=== PATIENT | female | born 1970 | race Caucasian/White ===

== ENCOUNTER 2020-06-01 13:02 | Inpatient (IN) ==
[2020-06-01] MEDS ORDERED: PHARMACY CONSULT - VANCOMYCIN XX SCH (14:00)
[2020-06-01] MEDS ORDERED: NS 100 ML IV + SPIKE MINIBAG* 100 ML IV ONE (15:58)
[2020-06-01] MEDS ORDERED: ZOSYN VIAL 3.375 GRAMS IV ONE (15:58)
[2020-06-01 16:12] LABS: BASOPHILS # (AUTO) 0.1 X10^3/uL (0.0-0.1); BASOPHILS % (AUTO) 0.9 % (0.2-1.0); EOSINOPHILS # (AUTO) 0.2 x10^3/uL (0.0-0.2); EOSINOPHILS % (AUTO) 1.8 % (0.9-2.9); HEMOGLOBIN 11.3 g/dL (12.0-16.0); LYMPHOCYTES # (AUTO) 3.4 X10^3/uL (1.3-2.9); LYMPHOCYTES % (AUTO) 27.4 % (21.0-51.0); MEAN CORPUSCULAR HEMOGLOBIN 27.2 pg (27.0-34.0); MEAN CORPUSCULAR HGB CONC 33.3 g/dL (33.0-35.0); MEAN CORPUSCULAR VOLUME 81.6 fL (80.0-100.0); MEAN PLATELET VOLUME 6.8 fL (7.4-11.0); MONOCYTES # (AUTO) 0.7 x10^3/uL (0.3-0.8); MONOCYTES % (AUTO) 5.6 % (0.0-13.0); NEUTROPHILS % (AUTO) 64.3 % (42.0-75.0); PLATELET COUNT 461 X10^3/uL (150.0-450.0); RED BLOOD COUNT 4.17 X10^6/uL (3.5-5.4); RED CELL DISTRIBUTION WIDTH 14.8 % (11.6-16.5); WHITE BLOOD COUNT 12.5 X10^3/uL (3.6-10.0)
[2020-06-01] MEDS: ZOSYN VIAL 3.375 GRAMS 3.375 G in NS 100 ML IV + SPIKE MINIBAG* 100 ML IV SCH ×3 (16:42→23:00)
[2020-06-01] MEDS ORDERED: ZANAFLEX PO PRN (16:45)
[2020-06-01] MEDS: ZESTORETIC 20/25 MG PO SCH (16:51)
[2020-06-01 17:02] LABS: ALANINE AMINOTRANSFERASE 18 Units/L (12-78); ALBUMIN 3.5 g/dL (3.4-5.0); ALKALINE PHOSPHATASE 162 Units/L (46-116); ASPARTATE AMINO TRANSFERASE 14 Units/L (15-37); BLOOD UREA NITROGEN 15 mg/dL (7-18); CALCIUM 9.4 mg/dL (8.5-10.1); CARBON DIOXIDE 28.3 mmol/L (21-32); CHLORIDE 99 mmol/L (98-107); CREATININE 0.91 mg/dL (0.55-1.02); SODIUM 135 mmol/L (136-145); TOTAL PROTEIN 8.8 g/dL (6.4-8.2); eGFR NON BLACK RACES > 60 (>60)
[2020-06-01] MEDS: PAXIL PO SCH (18:04)
[2020-06-01] MEDS ORDERED: VANCOMYCIN IV *PREMIX 1 G/200 ML BAG 1 G/200 ML PIGGYBACK IV ONE (18:30)
[2020-06-01] MEDS ORDERED: VANCOMYCIN HCL 1 G in D5W 250 ML IV 250 ML IV SCH (20:00)
[2020-06-01] MEDS: RESTORIL CAP 30 MG PO PRN (21:00)
[2020-06-01] MEDS: PERCOCET TAB 5/325 MG PO PRN (21:00)
[2020-06-01] MEDS ORDERED: NS 250 ML IV 500 ML IV ONE (21:46)
[2020-06-02 06:21] LABS: BASOPHILS # (AUTO) 0.1 X10^3/uL (0.0-0.1); BASOPHILS % (AUTO) 0.9 % (0.2-1.0); EOSINOPHILS # (AUTO) 0.3 x10^3/uL (0.0-0.2); HEMATOCRIT 32.7 % (36.0-47.0); HEMOGLOBIN 10.9 g/dL (12.0-16.0); LYMPHOCYTES % (AUTO) 33.3 % (21.0-51.0); MEAN CORPUSCULAR HEMOGLOBIN 27.3 pg (27.0-34.0); MEAN CORPUSCULAR HGB CONC 33.3 g/dL (33.0-35.0); MEAN PLATELET VOLUME 6.8 fL (7.4-11.0); MONOCYTES # (AUTO) 0.6 x10^3/uL (0.3-0.8); MONOCYTES % (AUTO) 6.7 % (0.0-13.0); NEUTROPHILS % (AUTO) 56.1 % (42.0-75.0); PLATELET COUNT 421 X10^3/uL (150.0-450.0); RED BLOOD COUNT 3.98 X10^6/uL (3.5-5.4); RED CELL DISTRIBUTION WIDTH 14.9 % (11.6-16.5); WHITE BLOOD COUNT 8.9 X10^3/uL (3.6-10.0)
[2020-06-02 06:32] LABS: ALANINE AMINOTRANSFERASE 17 Units/L (12-78); ALBUMIN 2.8 g/dL (3.4-5.0); ALKALINE PHOSPHATASE 139 Units/L (46-116); ASPARTATE AMINO TRANSFERASE 17 Units/L (15-37); BLOOD UREA NITROGEN 12 mg/dL (7-18); CALCIUM 9.1 mg/dL (8.5-10.1); CARBON DIOXIDE 29.5 mmol/L (21-32); CHLORIDE 103 mmol/L (98-107); COR CA(FOR HYPOALB) 10.1 mg/dL (8.5-10.1); COR NA(FOR HYPERGLY) 140 mmol/L (136-145); CREATININE 0.84 mg/dL (0.55-1.02); SODIUM 140 mmol/L (136-145); TOTAL PROTEIN 7.6 g/dL (6.4-8.2); eGFR NON BLACK RACES > 60 (>60)
[2020-06-02] MEDS: ZOSYN VIAL 3.375 GRAMS 3.375 G in NS 100 ML IV + SPIKE MINIBAG* 100 ML IV SCH ×3 (06:39→21:17)
--- NOTE | 2020-06-02 07:48 | DR.CONSULT ---
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 Allergies Allergies Allergy/AdvReac Type Severity Reaction Status Date / Time clonidine Allergy Verified 06/01/20 18:08 hydrocodone Allergy Verified 06/01/20 18:08 Ewgxxxw-Ljo-Zvu Reductase Allergy Verified 06/01/20 18:08 Inhibitor dextrose 5 % in water AdvReac Verified 06/01/20 18:45 [From Zyvox] linezolid [From Zyvox] AdvReac Verified 06/01/20 18:45 History of Present Illness History of Present Illness: has had wound of left foot for 1.5 months. has undergone many different abx and local wound care, she will need surgical intervention Past Medical History Past Medical History: Diabetes Past Surgical History Surgical History: Other Family History Family Medical History: Diabetes Mellitus, Cancer and Coronary Artery Disease Social History Does patient currently use any type of tobacco product: No Have you used tobacco products in the last 12 months: No Type of Tobacco Use: None How many years tobacco product used: 20 Does any household member use tobacco: No Alcohol Use: Heavy Drug Use: None Medications Home Medications: clonidine Allergy (Verified 06/01/20 18:08) hydrocodone Allergy (Verified 06/01/20 18:08) Zcewkzk-Cuo-Qlu Reductase Inhibitor Allergy (Verified 06/01/20 18:08) dextrose 5 % in water [From Zyvox] Adverse Reaction (Verified 06/01/20 18:45) linezolid [From Zyvox] Adverse Reaction (Verified 06/01/20 18:45) CONTINUE taking the following medications insulin NPH and regular human [Humulin 70/30 U-100 Insulin] See Rx Instructions .ROUTE .COMPLEX 06/01/20 [History] lansoprazole 15 mg PO DAILY 06/01/20 [History] linezolid 600 mg PO BID 06/01/20 [History] lisinopril-hydrochlorothiazide 1 tab PO DAILY 06/01/20 [History] oxycodone-acetaminophen 1 tab PO TID 06/01/20 [History] paroxetine HCl 40 mg PO DAILY 06/01/20 [History] semaglutide [Ozempic] See Rx Instructions .ROUTE .COMPLEX 06/01/20 [History] temazepam 30 mg PO HS 06/01/20 [History] tizanidine 8 mg PO Q8H PRN 06/01/20 [History] Review of Systems Constitutional: Fever, Chills and Sweats Physical Exam Vital Signs: Temperature 98 F Pulse Rate [Left Brachial] 80 Respiratory Rate 20 Blood Pressure [Left Arm] 106/58 O2 Sat by Pulse Oximetry 98 left LE with wound that is 3.8cm in diameter and is 2.1xcm deep and probe to bone. serous fluid. no palpable abscess. patient with gross charcot deformity of the foot with rockerbottom. she has grossly unstable midfoot. hindfoot equinus. right LE with forefoot wound. previous hallux amp. two wounds one under 3rd met head is 1.0cm and is 3mm deep. left with 0.5cm wound and without depth. she still has pain under the forefoot with direct palpation. Skin: Wound (plantar left foot and plantar right foot see above) Musculoskeletal: Foot (charcot of the left foot. ) Plan Plan: will obtain culture this am. has not tolerated zyvox as outpatient, vanco and zosyn here. will plan for I&D and washout of the left foot and likely right foot tomorrow as well. will plan antibiotic bead placement on the left with vanco and zosyn. she will need IVs for one week and then will plan more definitive reconstruction with external fixator next Saturday. NPO after midnight. dry dressings with 4x4 and kerlex to be applied prn to the feet.
[2020-06-02] MEDS ORDERED: ZANAFLEX PO PRN (08:21)
[2020-06-02] MEDS ORDERED: PATIENT'S HOME MEDICATION (Oxycodone-Acetaminophen 1 TAB) PO SCH (08:30)
[2020-06-02] MEDS: VANCOMYCIN HCL 750 MG in NS 250 ML IV 250 ML IV SCH ×2 (08:50→21:15)
[2020-06-02] MEDS: PREVACID PO SCH (08:50)
[2020-06-02] MEDS: PAXIL PO SCH (08:50)
[2020-06-02] MEDS: PERCOCET TAB 5/325 MG PO PRN ×3 (08:51→21:21)
[2020-06-02] MEDS: ZESTORETIC 20/25 MG PO SCH (08:52)
[2020-06-02] MEDS ORDERED: ZESTORETIC 20/25 MG PO SCH (09:00)
[2020-06-02] MEDS ORDERED: LANSOPRAZOLE 15 MG PO SCH (09:00)
[2020-06-02] MEDS ORDERED: PAXIL PO SCH (09:00)
[2020-06-02 13:39] VITALS: BMI 25.9
[2020-06-02] MEDS ORDERED: POTASSIUM CHL 40 MEQ/NS 0.45% 500 ML IV PRN (14:32)
[2020-06-02] MEDS ORDERED: MICRO K EXTEN CAP 10 MEQ PO PRN (14:32)
[2020-06-02] MEDS ORDERED: POTASSIUM CHL 60 MEQ/NS 0.45% 500 ML IV PRN (14:32)
[2020-06-02] MEDS ORDERED: POTASSIUM CHLORIDE LIQ 20 MEQ UDC PO PRN (14:32)
[2020-06-02] MEDS ORDERED: KLOR-CON PO PRN (14:32)
[2020-06-02] MEDS ORDERED: K-DUR TAB 20 MEQ PO PRN (14:32)
[2020-06-02] MEDS ORDERED: K-RIDER 10 MEQ/NS 100 ML 10 MEQ/100 ML BAG IV PRN (14:32)
[2020-06-02] MEDS ORDERED: MILK OF MAGNESIA ONE (14:58)
[2020-06-02] MEDS: MILK OF MAGNESIA PO SCH (15:22)
[2020-06-02] MEDS ORDERED: RESTORIL CAP 30 MG PO SCH (21:00)
[2020-06-02] MEDS: COLACE CAP 100 MG PO SCH (21:20)
[2020-06-02] MEDS: RESTORIL CAP 30 MG PO PRN (21:21)
[2020-06-03] MEDS: ZOSYN VIAL 3.375 GRAMS 3.375 G in NS 100 ML IV + SPIKE MINIBAG* 100 ML IV SCH ×3 (05:16→22:34)
[2020-06-03 06:46] LABS: BASOPHILS # (AUTO) 0.1 X10^3/uL (0.0-0.1); BASOPHILS % (AUTO) 0.8 % (0.2-1.0); EOSINOPHILS # (AUTO) 0.3 x10^3/uL (0.0-0.2); EOSINOPHILS % (AUTO) 3.9 % (0.9-2.9); HEMATOCRIT 31.4 % (36.0-47.0); HEMOGLOBIN 10.5 g/dL (12.0-16.0); LYMPHOCYTES % (AUTO) 38.2 % (21.0-51.0); MEAN CORPUSCULAR HEMOGLOBIN 27.2 pg (27.0-34.0); MEAN CORPUSCULAR HGB CONC 33.5 g/dL (33.0-35.0); MEAN CORPUSCULAR VOLUME 81.3 fL (80.0-100.0); MEAN PLATELET VOLUME 6.4 fL (7.4-11.0); MONOCYTES # (AUTO) 0.5 x10^3/uL (0.3-0.8); MONOCYTES % (AUTO) 6.7 % (0.0-13.0); NEUTROPHILS % (AUTO) 50.4 % (42.0-75.0); PLATELET COUNT 380 X10^3/uL (150.0-450.0); RED BLOOD COUNT 3.86 X10^6/uL (3.5-5.4); RED CELL DISTRIBUTION WIDTH 14.8 % (11.6-16.5); WHITE BLOOD COUNT 7.9 X10^3/uL (3.6-10.0)
[2020-06-03 07:07] LABS: ALANINE AMINOTRANSFERASE 18 Units/L (12-78); ALBUMIN 2.7 g/dL (3.4-5.0); ALKALINE PHOSPHATASE 125 Units/L (46-116); ASPARTATE AMINO TRANSFERASE 13 Units/L (15-37); BLOOD UREA NITROGEN 12 mg/dL (7-18); CARBON DIOXIDE 29.6 mmol/L (21-32); CHLORIDE 105 mmol/L (98-107); COR NA(FOR HYPERGLY) 142 mmol/L (136-145); SODIUM 141 mmol/L (136-145); TOTAL PROTEIN 7.2 g/dL (6.4-8.2); eGFR NON BLACK RACES > 60 (>60)
[2020-06-03] MEDS ORDERED: VANCOMYCIN HCL ONE (07:28)
[2020-06-03] MEDS ORDERED: TOBRAMYCIN SULFATE ONE ×2 (07:28→07:35)
[2020-06-03] MEDS ORDERED: MARCAINE 0.25% INJ ONE (07:28)
--- NOTE | 2020-06-03 07:29 | RAD ---
HISTORYPRE OP DIABETIC ULCERSTUDYCHEST, 1 VIEWCOMPARISONNoneTECHNIQUEAP view of the chestFINDINGSThe cardiac and mediastinal contours are within normal limits. The lungs are clear without focal consolidation or segmental collapse. No pleural effusion or pneumothorax.IMPRESSIONNo acute pulmonary process.Electronically signed by: oJse Gooden (Jun 03, 2020 07:29:02)
[2020-06-03] MEDS ORDERED: FENTANYL INJ 100 mcg ONE (08:12)
[2020-06-03] MEDS ORDERED: PHARMACY COMMENT IV SCH (08:30)
[2020-06-03] MEDS ORDERED: NS 1000 ML 1,000 ML ONE (08:40)
[2020-06-03 08:59] LABS: CREATININE 0.9 mg/dL (0.55-1.02); VANCOMYCIN,TROUGH 7.3 ug/mL (15-20)
[2020-06-03] MEDS ORDERED: SEMAGLUTIDE 1 MG SC SCH (09:00)
[2020-06-03] MEDS ORDERED: EPHEDRINE SULFATE INJ ONE (09:31)
[2020-06-03] MEDS ORDERED: SUPRANE ONE (09:31)
[2020-06-03] MEDS ORDERED: DIPRIVAN VIAL ONE (09:31)
[2020-06-03] MEDS ORDERED: VERSED ONE (09:31)
[2020-06-03] MEDS ORDERED: NS IRRIGATION* 1,000 ML ONE (10:41)
[2020-06-03] MEDS: ZESTORETIC 20/25 MG PO SCH (11:16)
[2020-06-03] MEDS: PREVACID PO SCH (11:17)
[2020-06-03] MEDS: PAXIL PO SCH (11:17)
[2020-06-03] MEDS: MILK OF MAGNESIA PO SCH (11:35)
[2020-06-03] MEDS: VANCOMYCIN HCL 750 MG in NS 250 ML IV 250 ML IV SCH ×2 (11:35→20:40)
[2020-06-03] MEDS: GLUCOPHAGE XR 24-HR PO SCH ×2 (11:35→22:33)
[2020-06-03] MEDS: PERCOCET TAB 5/325 MG PO PRN ×2 (15:25→21:11)
[2020-06-03] MEDS: RESTORIL CAP 30 MG PO PRN (21:12)
[2020-06-03] MEDS: COLACE CAP 100 MG PO SCH (22:33)
[2020-06-04] MEDS: ZOSYN VIAL 3.375 GRAMS 3.375 G in NS 100 ML IV + SPIKE MINIBAG* 100 ML IV SCH ×3 (06:00→23:00)
--- NOTE | 2020-06-04 08:20 | MD.NOTE ---
Provider Note Note Note: S: patient seen this am. POD #1 from I&D with cultures and bone bx. minimal strikethrough. no acute pain. NAD. O: left foot with minor strikethrough. she has motor but no sensory intact to toes. left wound with beads in wound. right foot dressing left intact. A: POD #1 from I&D with washout and bead placement. P: 1. continue IV abx vanco and zosyn, beads placed yesterday with vanco and tobra. 2. awaiting bone bx results from left foot 3. will plan for reconstruction of the left foot mid week with external fixator application, but awaiting bone bx results. 4. patient continue with minimal WB and bedrest. 5. left dressing changed and beads left in place but ioban taken off and dry dressings applied. will need to change daily.
[2020-06-04] MEDS ORDERED: VANCOMYCIN HCL 750 MG VIAL ONE (09:39)
[2020-06-04] MEDS ORDERED: NS 250 ML IV 250 ML IV ONE (09:41)
[2020-06-04] MEDS: PERCOCET TAB 5/325 MG PO PRN ×2 (10:00→19:25)
[2020-06-04] MEDS: PAXIL PO SCH (10:20)
[2020-06-04] MEDS: PREVACID PO SCH (10:21)
[2020-06-04] MEDS: GLUCOPHAGE XR 24-HR PO SCH ×2 (10:21→21:18)
[2020-06-04] MEDS: VANCOMYCIN HCL 750 MG in NS 250 ML IV 250 ML IV SCH ×2 (10:22→21:14)
[2020-06-04] MEDS: ZESTORETIC 20/25 MG PO SCH (10:23)
[2020-06-04] MEDS: MILK OF MAGNESIA PO SCH (12:14)
[2020-06-04] MEDS: COLACE CAP 100 MG PO SCH (21:18)
[2020-06-04] MEDS: RESTORIL CAP 30 MG PO PRN (21:18)
[2020-06-05] MEDS: ZOSYN VIAL 3.375 GRAMS 3.375 G in NS 100 ML IV + SPIKE MINIBAG* 100 ML IV SCH (05:53)
[2020-06-05 06:53] LABS: BASOPHILS # (AUTO) 0.1 X10^3/uL (0.0-0.1); BASOPHILS % (AUTO) 1.3 % (0.2-1.0); EOSINOPHILS # (AUTO) 0.3 x10^3/uL (0.0-0.2); EOSINOPHILS % (AUTO) 3.8 % (0.9-2.9); HEMATOCRIT 29.2 % (36.0-47.0); LYMPHOCYTES # (AUTO) 2.7 X10^3/uL (1.3-2.9); LYMPHOCYTES % (AUTO) 37.9 % (21.0-51.0); MEAN CORPUSCULAR HEMOGLOBIN 27.9 pg (27.0-34.0); MEAN CORPUSCULAR HGB CONC 34.2 g/dL (33.0-35.0); MEAN CORPUSCULAR VOLUME 81.5 fL (80.0-100.0); MEAN PLATELET VOLUME 6.8 fL (7.4-11.0); MONOCYTES # (AUTO) 0.4 x10^3/uL (0.3-0.8); MONOCYTES % (AUTO) 5.7 % (0.0-13.0); NEUTROPHILS # (AUTO) 3.7 x10^3/uL (2.2-4.8); NEUTROPHILS % (AUTO) 51.3 % (42.0-75.0); PLATELET COUNT 329 X10^3/uL (150.0-450.0); RED BLOOD COUNT 3.58 X10^6/uL (3.5-5.4); RED CELL DISTRIBUTION WIDTH 14.7 % (11.6-16.5); WHITE BLOOD COUNT 7.1 X10^3/uL (3.6-10.0)
[2020-06-05 07:17] LABS: ALANINE AMINOTRANSFERASE 15 Units/L (12-78); ALBUMIN 2.6 g/dL (3.4-5.0); ALKALINE PHOSPHATASE 119 Units/L (46-116); ASPARTATE AMINO TRANSFERASE 14 Units/L (15-37); BLOOD UREA NITROGEN 8 mg/dL (7-18); CALCIUM 9.1 mg/dL (8.5-10.1); CARBON DIOXIDE 28.3 mmol/L (21-32); CHLORIDE 105 mmol/L (98-107); COR CA(FOR HYPOALB) 10.2 mg/dL (8.5-10.1); COR NA(FOR HYPERGLY) 142 mmol/L (136-145); CREATININE 0.71 mg/dL (0.55-1.02); SODIUM 141 mmol/L (136-145); eGFR NON BLACK RACES > 60 (>60)
[2020-06-05] MEDS: PERCOCET TAB 5/325 MG PO PRN ×2 (08:25→19:35)
[2020-06-05] MEDS ORDERED: VANCOMYCIN HCL 750 MG VIAL ONE (08:36)
[2020-06-05] MEDS: VANCOMYCIN HCL 750 MG in NS 250 ML IV 250 ML IV SCH (08:42)
[2020-06-05] MEDS: GLUCOPHAGE XR 24-HR PO SCH ×2 (08:45→22:34)
[2020-06-05] MEDS: ZESTORETIC 20/25 MG PO SCH (08:45)
[2020-06-05] MEDS: PAXIL PO SCH (08:45)
[2020-06-05] MEDS: PREVACID PO SCH (08:50)
[2020-06-05] MEDS: CIPRO IV 400 MG PREMIX* 400 MG/200 ML IV.SOLN. IV SCH ×2 (14:13→21:10)
[2020-06-05] MEDS ORDERED: CIPRO IV 400 MG PREMIX* 400 MG/200 ML IV.SOLN. IV ONE (14:15)
[2020-06-05] MEDS: MILK OF MAGNESIA PO SCH (15:45)
[2020-06-05] MEDS: RESTORIL CAP 30 MG PO PRN (21:10)
[2020-06-05 21:13] LABS: CREATININE 0.93 mg/dL (0.55-1.02); VANCOMYCIN,TROUGH 5.9 ug/mL (15-20)
[2020-06-05] MEDS ORDERED: VANCOMYCIN HCL 1 G in D5W 250 ML IV 250 ML IV SCH (22:00)
[2020-06-05] MEDS: COLACE CAP 100 MG PO SCH (22:34)
[2020-06-06 06:55] LABS: BASOPHILS # (AUTO) 0.1 X10^3/uL (0.0-0.1); BASOPHILS % (AUTO) 0.9 % (0.2-1.0); EOSINOPHILS # (AUTO) 0.3 x10^3/uL (0.0-0.2); EOSINOPHILS % (AUTO) 3.4 % (0.9-2.9); HEMATOCRIT 32.8 % (36.0-47.0); HEMOGLOBIN 10.8 g/dL (12.0-16.0); LYMPHOCYTES # (AUTO) 2.8 X10^3/uL (1.3-2.9); LYMPHOCYTES % (AUTO) 35.4 % (21.0-51.0); MEAN CORPUSCULAR HEMOGLOBIN 26.9 pg (27.0-34.0); MEAN CORPUSCULAR HGB CONC 33.1 g/dL (33.0-35.0); MEAN CORPUSCULAR VOLUME 81.2 fL (80.0-100.0); MEAN PLATELET VOLUME 6.7 fL (7.4-11.0); MONOCYTES # (AUTO) 0.4 x10^3/uL (0.3-0.8); MONOCYTES % (AUTO) 5.6 % (0.0-13.0); NEUTROPHILS # (AUTO) 4.3 x10^3/uL (2.2-4.8); NEUTROPHILS % (AUTO) 54.7 % (42.0-75.0); PLATELET COUNT 360 X10^3/uL (150.0-450.0); RED BLOOD COUNT 4.04 X10^6/uL (3.5-5.4); RED CELL DISTRIBUTION WIDTH 14.7 % (11.6-16.5); WHITE BLOOD COUNT 7.9 X10^3/uL (3.6-10.0)
[2020-06-06 07:21] LABS: ALANINE AMINOTRANSFERASE 19 Units/L (12-78); ALBUMIN 2.8 g/dL (3.4-5.0); ALKALINE PHOSPHATASE 118 Units/L (46-116); ASPARTATE AMINO TRANSFERASE 17 Units/L (15-37); BLOOD UREA NITROGEN 12 mg/dL (7-18); CALCIUM 9.3 mg/dL (8.5-10.1); CARBON DIOXIDE 27.3 mmol/L (21-32); CHLORIDE 103 mmol/L (98-107); COR CA(FOR HYPOALB) 10.3 mg/dL (8.5-10.1); COR NA(FOR HYPERGLY) 141 mmol/L (136-145); MAGNESIUM 1.9 mg/dL (1.7-2.9); SODIUM 140 mmol/L (136-145); TOTAL PROTEIN 7.4 g/dL (6.4-8.2); eGFR NON BLACK RACES > 60 (>60)
[2020-06-06] MEDS: CIPRO IV 400 MG PREMIX* 400 MG/200 ML IV.SOLN. IV SCH ×2 (09:11→21:23)
[2020-06-06] MEDS: PREVACID PO SCH (09:12)
[2020-06-06] MEDS: PAXIL PO SCH (09:12)
[2020-06-06] MEDS: ZESTORETIC 20/25 MG PO SCH (09:13)
[2020-06-06] MEDS: MILK OF MAGNESIA PO SCH (09:13)
[2020-06-06] MEDS: GLUCOPHAGE XR 24-HR PO SCH ×3 (09:18→21:24)
[2020-06-06] MEDS: PERCOCET TAB 5/325 MG PO PRN ×2 (09:28→21:32)
[2020-06-06] MEDS: VANCOMYCIN HCL 1 G in D5W 250 ML IV 250 ML IV SCH ×2 (10:45→22:25)
[2020-06-06] MEDS: COLACE CAP 100 MG PO SCH (21:23)
[2020-06-06] MEDS: RESTORIL CAP 30 MG PO PRN (21:31)
[2020-06-07 06:36] LABS: BASOPHILS # (AUTO) 0.1 X10^3/uL (0.0-0.1); BASOPHILS % (AUTO) 1.1 % (0.2-1.0); EOSINOPHILS # (AUTO) 0.3 x10^3/uL (0.0-0.2); HEMOGLOBIN 11.2 g/dL (12.0-16.0); LYMPHOCYTES # (AUTO) 2.8 X10^3/uL (1.3-2.9); LYMPHOCYTES % (AUTO) 31.4 % (21.0-51.0); MEAN CORPUSCULAR HEMOGLOBIN 26.7 pg (27.0-34.0); MEAN CORPUSCULAR HGB CONC 32.9 g/dL (33.0-35.0); MEAN CORPUSCULAR VOLUME 81.4 fL (80.0-100.0); MEAN PLATELET VOLUME 6.5 fL (7.4-11.0); MONOCYTES # (AUTO) 0.6 x10^3/uL (0.3-0.8); MONOCYTES % (AUTO) 6.6 % (0.0-13.0); NEUTROPHILS # (AUTO) 5.1 x10^3/uL (2.2-4.8); NEUTROPHILS % (AUTO) 57.9 % (42.0-75.0); PLATELET COUNT 391 X10^3/uL (150.0-450.0); RED BLOOD COUNT 4.17 X10^6/uL (3.5-5.4); RED CELL DISTRIBUTION WIDTH 14.6 % (11.6-16.5); WHITE BLOOD COUNT 8.8 X10^3/uL (3.6-10.0)
[2020-06-07 06:53] LABS: ALANINE AMINOTRANSFERASE 23 Units/L (12-78); ALBUMIN 2.9 g/dL (3.4-5.0); ALKALINE PHOSPHATASE 120 Units/L (46-116); ASPARTATE AMINO TRANSFERASE 19 Units/L (15-37); BLOOD UREA NITROGEN 11 mg/dL (7-18); CALCIUM 9.2 mg/dL (8.5-10.1); CARBON DIOXIDE 28.6 mmol/L (21-32); CHLORIDE 102 mmol/L (98-107); COR CA(FOR HYPOALB) 10.1 mg/dL (8.5-10.1); COR NA(FOR HYPERGLY) 140 mmol/L (136-145); CREATININE 0.77 mg/dL (0.55-1.02); SODIUM 139 mmol/L (136-145); TOTAL PROTEIN 7.5 g/dL (6.4-8.2); eGFR NON BLACK RACES > 60 (>60)
[2020-06-07] MEDS ORDERED: PHARMACY COMMENT IV NR (08:30)
[2020-06-07] MEDS: CIPRO IV 400 MG PREMIX* 400 MG/200 ML IV.SOLN. IV SCH ×2 (08:44→20:45)
[2020-06-07] MEDS: PREVACID PO SCH (08:44)
[2020-06-07] MEDS: GLUCOPHAGE XR 24-HR PO SCH ×2 (08:44→21:03)
[2020-06-07] MEDS: PAXIL PO SCH (08:44)
[2020-06-07] MEDS: MILK OF MAGNESIA PO SCH (08:44)
[2020-06-07] MEDS: ZESTORETIC 20/25 MG PO SCH (08:45)
[2020-06-07] MEDS: PERCOCET TAB 5/325 MG PO PRN ×2 (08:57→18:21)
[2020-06-07] MEDS: VANCOMYCIN HCL 1 G in D5W 250 ML IV 250 ML IV SCH ×2 (10:00→21:40)
--- NOTE | 2020-06-07 10:07 | PCM.PROG ---
Progress Note Progress Note for Day of Date of Exam: 06/07/20 Subjective Subjective: Pt is s/p b/l foot debridement w/ w/ implantation of abx beads in the left foot. Pt denies n/v/f/c/sob and reports no events overnight. Pt states that she is currently not experiencing any pain and has been able to rest comfortably. Past Medical Family Social History Allergies: Allergies clonidine Allergy (Verified 06/01/20 18:08) hydrocodone Allergy (Verified 06/01/20 18:08) Byzynqh-Zjv-Tlk Reductase Inhibitor Allergy (Verified 06/01/20 18:08) dextrose 5 % in water [From Zyvox] Adverse Reaction (Verified 06/01/20 18:45) linezolid [From Zyvox] Adverse Reaction (Verified 06/01/20 18:45) Vital Signs and I&O's Vital Signs: Temperature 97.2 F Pulse Rate [Left Brachial] 75 Pulse Rate 83 Respiratory Rate 18 Blood Pressure [Left Arm] 123/73 Blood Pressure 98/55 O2 Sat by Pulse Oximetry 99 Intake and Output: Intake & Output 06/04/20 06/05/20 06/06/20 06/07/20 23:59 23:59 23:59 23:59 Intake Total 3560 / 3560 3925 / 3925 3936 / 3936 110 / 110 Balance 3560 / 3560 3925 / 3925 3936 / 3936 110 / 110 Physical Exam Oriented: Normal, Time, Person and Place Eyes: Normal Skin: Wound (plantar left foot and plantar right foot see above) Musculoskeletal: Foot (charcot of the left foot. ) Speech Pattern: Clear and Appropriate Laboratory and Diagnostics Result Diagrams: 06/07/20 06:00 06/07/20 06:00 Labs: 06/03/20 10:00 Foot - Left Gram Stain - Final 06/03/20 10:00 Foot - Left Wound Culture - Final Acinetobacter Baumanii/Haemoly 06/02/20 07:35 Foot - Left Gram Stain - Final 06/02/20 07:35 Foot - Left Wound Culture - Final Acinetobacter Baumanii/Haemoly Laboratory WBC 8.8 X10^3/uL (3.6-10.0) 06/07/20 06:00 RBC 4.17 X10^6/uL (3.5-5.4) 06/07/20 06:00 Hgb 11.2 g/dL (12.0-16.0) L 06/07/20 06:00 Hct 34.0 % (36.0-47.0) L 06/07/20 06:00 MCV 81.4 fL (80.0-100.0) 06/07/20 06:00 MCH 26.7 pg (27.0-34.0) L 06/07/20 06:00 MCHC 32.9 g/dL (33.0-35.0) L 06/07/20 06:00 RDW 14.6 % (11.6-16.5) 06/07/20 06:00 Plt Count 391 X10^3/uL (150.0-450.0) 06/07/20 06:00 MPV 6.5 fL (7.4-11.0) L 06/07/20 06:00 Neut % (Auto) 57.9 % (42.0-75.0) 06/07/20 06:00 Lymph % (Auto) 31.4 % (21.0-51.0) 06/07/20 06:00 [place] % (Auto) 6.6 % (0.0-13.0) 06/07/20 06:00 Eos % (Auto) 3.0 % (0.9-2.9) H 06/07/20 06:00 Baso % (Auto) 1.1 % (0.2-1.0) H 06/07/20 06:00 Neut # (Auto) 5.1 x10^3/uL (2.2-4.8) H 06/07/20 06:00 Lymph # (Auto) 2.8 X10^3/uL (1.3-2.9) 06/07/20 06:00 [place] # (Auto) 0.6 x10^3/uL (0.3-0.8) 06/07/20 06:00 Eos # (Auto) 0.3 x10^3/uL (0.0-0.2) H 06/07/20 06:00 Baso # (Auto) 0.1 X10^3/uL (0.0-0.1) 06/07/20 06:00 Absolute Nucleated RBC 0.1 /100WBC 06/07/20 06:00 Sodium 139 mmol/L (136-145) 06/07/20 06:00 Corrected Sodium 140 mmol/L (136-145) 06/07/20 06:00 Potassium 3.7 mmol/L (3.5-5.1) 06/07/20 06:00 Chloride 102 mmol/L (98-107) 06/07/20 06:00 Carbon Dioxide 28.6 mmol/L (21-32) 06/07/20 06:00 BUN 11 mg/dL (7-18) 06/07/20 06:00 Creatinine 0.77 mg/dL (0.55-1.02) 06/07/20 06:00 Est GFR (MDRD) Af Amer > 60 (>60) 06/07/20 06:00 Est GFR (MDRD) Non-Af > 60 (>60) 06/07/20 06:00 Glucose 159 mg/dL (65-99) H 06/07/20 06:00 POC Glucose (mg/dL) 131 mg/dL (65-99) H 06/07/20 05:23 Calcium 9.2 mg/dL (8.5-10.1) 06/07/20 06:00 Corrected Calcium 10.1 mg/dL (8.5-10.1) 06/07/20 06:00 Magnesium 1.9 mg/dL (1.7-2.9) 06/06/20 05:33 Total Bilirubin 0.20 mg/dL (0.2-1.0) 06/07/20 06:00 AST 19 Units/L (15-37) 06/07/20 06:00 ALT 23 Units/L (12-78) 06/07/20 06:00 Alkaline Phosphatase 120 Units/L (46-116) H 06/07/20 06:00 Total Protein 7.5 g/dL (6.4-8.2) 06/07/20 06:00 Albumin 2.9 g/dL (3.4-5.0) L 06/07/20 06:00 Globulin 4.6 g/dL (2.5-4.5) H 06/07/20 06:00 Albumin/Globulin Ratio 0.6 Ratio (1.1-2.1) L 06/07/20 06:00 Vancomycin Trough 5.9 ug/mL (15-20) L 06/05/20 20:40 Tissue Pathology To follow 06/03/20 10:00 Plan (1) Osteomyelitis of foot: Status: Acute Plan: Assessment/Plan: - Pt was seen at bedside and, both the dressing and abx beads were removed. The wound measured 3.0cm x 2.5cm x 1.2cm. Wound base is granular w/ no undermining or tunneling. No malodor or purulent drainage. - wound was dressed w/ betadine soaked gauze and cling. - c/w IV abx as per ID recs - NPO @ midnight - Pt will return to OR tomorrow for application of external fixation and will remain in hospital for an additional day for post op pain management.
[2020-06-07] MEDS: COLACE CAP 100 MG PO SCH (21:02)
[2020-06-08 06:40] LABS: BASOPHILS # (AUTO) 0.1 X10^3/uL (0.0-0.1); BASOPHILS % (AUTO) 0.8 % (0.2-1.0); EOSINOPHILS # (AUTO) 0.3 x10^3/uL (0.0-0.2); EOSINOPHILS % (AUTO) 3.2 % (0.9-2.9); HEMATOCRIT 36.1 % (36.0-47.0); HEMOGLOBIN 11.9 g/dL (12.0-16.0); LYMPHOCYTES # (AUTO) 2.8 X10^3/uL (1.3-2.9); LYMPHOCYTES % (AUTO) 28.2 % (21.0-51.0); MEAN CORPUSCULAR HGB CONC 33.1 g/dL (33.0-35.0); MEAN CORPUSCULAR VOLUME 81.4 fL (80.0-100.0); MEAN PLATELET VOLUME 6.6 fL (7.4-11.0); MONOCYTES # (AUTO) 0.7 x10^3/uL (0.3-0.8); MONOCYTES % (AUTO) 6.8 % (0.0-13.0); PLATELET COUNT 451 X10^3/uL (150.0-450.0); RED BLOOD COUNT 4.43 X10^6/uL (3.5-5.4); RED CELL DISTRIBUTION WIDTH 14.7 % (11.6-16.5); WHITE BLOOD COUNT 9.8 X10^3/uL (3.6-10.0)
[2020-06-08 06:51] LABS: ALANINE AMINOTRANSFERASE 24 Units/L (12-78); ALBUMIN 3.3 g/dL (3.4-5.0); ALKALINE PHOSPHATASE 133 Units/L (46-116); ASPARTATE AMINO TRANSFERASE 16 Units/L (15-37); BLOOD UREA NITROGEN 11 mg/dL (7-18); CALCIUM 9.8 mg/dL (8.5-10.1); CARBON DIOXIDE 29.8 mmol/L (21-32); CHLORIDE 101 mmol/L (98-107); COR CA(FOR HYPOALB) 10.4 mg/dL (8.5-10.1); COR NA(FOR HYPERGLY) 141 mmol/L (136-145); SODIUM 140 mmol/L (136-145); TOTAL PROTEIN 8.1 g/dL (6.4-8.2); eGFR NON BLACK RACES > 60 (>60)
[2020-06-08] MEDS: PERCOCET TAB 5/325 MG PO PRN ×3 (07:43→23:28)
[2020-06-08] MEDS: CIPRO IV 400 MG PREMIX* 400 MG/200 ML IV.SOLN. IV SCH ×2 (09:38→21:30)
[2020-06-08] MEDS ORDERED: NS 250 ML IV 250 ML IV ONE (09:41)
[2020-06-08] MEDS: PREVACID PO SCH (10:44)
[2020-06-08] MEDS: GLUCOPHAGE XR 24-HR PO SCH ×2 (10:44→23:22)
[2020-06-08] MEDS: VANCOMYCIN HCL 1 G in D5W 250 ML IV 250 ML IV SCH ×2 (10:46→22:40)
[2020-06-08] MEDS: ZESTORETIC 20/25 MG PO SCH (10:46)
[2020-06-08] MEDS: PAXIL PO SCH (10:47)
[2020-06-08] MEDS: MILK OF MAGNESIA PO SCH (10:47)
[2020-06-08] MEDS ORDERED: NS 1000 ML 1,000 ML ONE (12:21)
[2020-06-08] MEDS ORDERED: MARCAINE 0.25% INJ ONE (12:29)
[2020-06-08] MEDS ORDERED: NS IRRIGATION* 500 ML IR ONE (12:32)
[2020-06-08] MEDS ORDERED: BETADINE SOLN ONE (12:48)
[2020-06-08] MEDS ORDERED: VERSED ONE (13:02)
[2020-06-08] MEDS ORDERED: DIPRIVAN VIAL ONE (13:02)
[2020-06-08] MEDS ORDERED: EPHEDRINE SULFATE INJ ONE (13:02)
[2020-06-08] MEDS ORDERED: FENTANYL INJ 250 mcg ONE (13:02)
[2020-06-08] MEDS ORDERED: ZOFRAN INJ 4 MG VIAL ONE (13:02)
[2020-06-08] MEDS ORDERED: VANCOMYCIN HCL ONE (14:42)
[2020-06-08] MEDS ORDERED: TOBRAMYCIN SULFATE ONE (14:43)
[2020-06-08] MEDS ORDERED: ZOFRAN INJ 4 MG VIAL IVP PRN ×2 (15:23→15:45)
[2020-06-08] MEDS ORDERED: DILAUDID INJ ONE (15:36)
[2020-06-08] MEDS: DILAUDID INJ IVP PRN ×4 (15:37→15:52)
[2020-06-08] MEDS: NS 1000 ML 1,000 ML IV SCH ×2 (15:39→18:45)
[2020-06-08] MEDS ORDERED: PHENERGAN INJ 25 MG IM PRN (15:45)
[2020-06-08] MEDS ORDERED: REGLAN INJ 10 MG VIAL IVP PRN (15:45)
[2020-06-08] MEDS ORDERED: BENADRYL INJ 50 MG VIAL IVP PRN (15:45)
[2020-06-08] MEDS ORDERED: COLACE CAP 100 MG PO SCH (21:00)
[2020-06-09] MEDS: PERCOCET TAB 5/325 MG PO PRN ×3 (05:35→14:53)
[2020-06-09 06:35] LABS: BLOOD UREA NITROGEN 11 mg/dL (7-18); CALCIUM 8.5 mg/dL (8.5-10.1); CARBON DIOXIDE 24.6 mmol/L (21-32); CHLORIDE 105 mmol/L (98-107); COR NA(FOR HYPERGLY) 140 mmol/L (136-145); CREATININE 0.82 mg/dL (0.55-1.02); SODIUM 139 mmol/L (136-145); eGFR NON BLACK RACES > 60 (>60)
[2020-06-09] MEDS ORDERED: LOVENOX INJ 40 MG SYR SC SCH (09:00)
[2020-06-09] MEDS: NS 1000 ML 1,000 ML IV SCH (09:00)
[2020-06-09] MEDS: ZESTORETIC 20/25 MG PO SCH (09:21)
[2020-06-09] MEDS: PREVACID PO SCH (09:21)
[2020-06-09] MEDS: CIPRO IV 400 MG PREMIX* 400 MG/200 ML IV.SOLN. IV SCH (09:22)
[2020-06-09] MEDS: GLUCOPHAGE XR 24-HR PO SCH (09:22)
[2020-06-09] MEDS: PAXIL PO SCH (09:22)
[2020-06-09] MEDS: MILK OF MAGNESIA PO SCH (09:23)
[2020-06-09] MEDS ORDERED: VANCOMYCIN HCL 250 MG, VANCOMYCIN HCL 1 G in D5W 250 ML IV 250 ML IV SCH (11:00)
[2020-06-09 13:23] VITALS: BP 137/63
[2020-06-10] MEDS ORDERED: PHARMACY COMMENT IV NR (20:30)
== END 2020-06-09 15:00 | disposition home health service (06) | DRG 624 ==
LOC: MED/SURG → EDSEX 14:50
PROVIDERS: ADMIT Obstetrics & Gynecology Obstetrics; ATTEND Obstetrics & Gynecology Obstetrics
PROC: APEXFIX (2020-06-08 12:15)
DX: B96.89 Other specified bacterial agents as the cause of diseases classified elsewhere; M24.572 Contracture, left ankle; I10 Essential (primary) hypertension; B96.5 Pseudomonas (aeruginosa) (mallei) (pseudomallei) as the cause of diseases classified elsewhere; E11.621 Type 2 diabetes mellitus with foot ulcer; L97.529 Non-pressure chronic ulcer of other part of left foot with unspecified severity

== ENCOUNTER 2021-05-05 12:51 | Inpatient (IN) ==
[2021-05-05 12:56] VITALS: BMI 23.2
[2021-05-05] MEDS ORDERED: NS 1000 ML 1,000 ML IV ONE (13:57)
--- NOTE | 2021-05-05 14:01 | DR.GENAD ---
HPI Time Seen Time Seen by Provider: 05/05/21 13:46 PCP Primary Care Physician: MARIELA HOWARD Complaint/Symptoms Chief Complaint Doctors Comments: 50 y/o female presents for evaluation. + black, necrotic left 2nd toe x 3 days. Now with similar blackness developing of left 3rd toe, side of left foot. + pain, constant, of left foot, does not radiate. Worse with movement, palpation. Referred to ER from scanning clerk, to see Dr. Doss. 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 Chief Complaint:: PT TO ER TO BE EVALUATED FOR NECROSIS , PT WAS REFFERED BY HEATHER HOWARD TO COME TO THE ER AND KATE HOWARD TO SEE PT ( PT REPORTS THIS STARTED 1.5 WEEKS AGO AND THAT SHE WAS AT [facility] OFFICE AND SHE WAS CALLED TO COME TO THE ER" Self Treatment fo Chief Complaint: NONE COVID-19 Coronavirus risk:travel/contact w/high risk person: No Has patient experienced Coronavirus symptoms: No Nurses notes reviewed Nurses Notes Review: Yes Source History Provided: Patient Mode of Arrival Mode of Arrival: Wheelchair Timing Onset of Chief Complaint: 04/19/21 Came on: Suddenly Duration Duration: Since Onset Severity Severity: Severe PMH PMH Past Medical History: Yes Past Medical History: Diabetes Past Surgical History: No Surgical History: Other Family History History of Family Medical Conditions: Yes Family Medical History: Diabetes Mellitus, Cancer and Coronary Artery Disease Social History Does patient currently use any type of tobacco product: No Have you used tobacco products in the last 12 months: No Type of Tobacco Use: None Does any household member use tobacco: No Alcohol Use: None Do you use any recreational Drugs:: No Lives With: Family Lives Where: Home Travel Risk Coronavirus risk:travel/contact w/high risk person: No Has patient experienced Coronavirus symptoms: No Infectious screening In the last 2 months have you had wt loss of >10#?: NO Have you had fever, night sweats or hemotysis?: No Have you traveled outside the country in the last 6 months?: No Isolation: Droplet ROS Review of Systems Constitutional: No Symptoms Reported Eyes: No Symptoms Reported ENTM: No Symptoms Reported Respiratoy: No Symptoms Reported Cardiovascular: No Symptoms Reported Gastrointestinal/Abdominal: No Symptoms Reported Genitourinary: No Symptoms Reported Neurological: No Symptoms Reported Integumentary: Other (blackness of left foot/toes) Hematologic/Lymphatic: No Symptoms Reported Endocrine: No Symptoms Reported Psychiatric: No Symptoms Reported All Other Systems: Reviewed and Negative PE Vital Signs Vitals: Temperature 96.9 F Pulse Rate 84 Respiratory Rate 22 Blood Pressure [Right Arm] 110/58 Blood Pressure [Left Arm] 137/63 Blood Pressure 110/70 O2 Sat by Pulse Oximetry 95 General Limitations: No Limitations General Appearance: Alert and Anxious Eyes Eye exam: Normal Appearance Neck Neck Exam: Normal Inspection Chest Chest Inspection: Normal Inspection Respiratory Respiratory Exam: Normal Lung Sounds Bilat; negative Accessory Muscle Use and Respiratory Distress Respiratory Exam: Bilateral: Clear to Auscultation Cardiovascular Cardiovascular Exam: Regular Rate, Normal Rhythm and Normal Heart Sounds Abdominal Exam Abdominal Exam: Normal Inspection Extremities Extremities Exam: Other (Left foot - + black, necrotic entire 2nd toe, + scattered blackness of 3rd toe. + oval patch of black dorsal lateral foot. + diffuse tenderness) Neurologic Neurological Exam: Alert and Oriented X3 Psychiatric Psychiatric Exam: Normal Affect and Anxious Skin Skin Exam: Warm and Dry MDM Differential Diagnosis Differential Diagnosis: gangrene, arterial occlusion COURSE Treatment Treatment: Pt sent from scanning clerk office, pt with gangrene of left 2nd toe, developing areas of necrosis of 3rd toe and lateral foot. W/u initiated. Dr. Doss came and evaluated the pt, will admit. [facility]OR Labs Reviewed Result Diagrams: 05/05/21 14:23 05/05/21 14:23 Laboratory: WBC 12.8 X10^3/uL (3.6-10.0) H 05/05/21 14:23 RBC 4.02 X10^6/uL (3.5-5.4) 05/05/21 14:23 Hgb 8.3 g/dL (12.0-16.0) L 05/05/21 14:23 Hct 27.0 % (36.0-47.0) L 05/05/21 14:23 MCV 67.1 fL (80.0-100.0) L 05/05/21 14:23 MCH 20.7 pg (27.0-34.0) L 05/05/21 14:23 MCHC 30.8 g/dL (33.0-35.0) L 05/05/21 14:23 RDW 19.8 % (11.6-16.5) H 05/05/21 14:23 Plt Count 616 X10^3/uL (150.0-450.0) H 05/05/21 14:23 Plt Count Comment Increased (ADEQUATE) A 05/05/21 14:23 MPV 6.9 fL (7.4-11.0) L 05/05/21 14:23 Neut % (Auto) 59.0 % (42.0-75.0) 05/05/21 14:23 Lymph % (Auto) 28.5 % (21.0-51.0) 05/05/21 14:23 [place] % (Auto) 9.2 % (0.0-13.0) 05/05/21 14:23 Eos % (Auto) 2.1 % (0.9-2.9) 05/05/21 14:23 Baso % (Auto) 1.2 % (0.2-1.0) H 05/05/21 14:23 Neut # (Auto) 7.5 x10^3/uL (2.2-4.8) H 05/05/21 14:23 Lymph # (Auto) 3.6 X10^3/uL (1.3-2.9) H 05/05/21 14:23 [place] # (Auto) 1.2 x10^3/uL (0.3-0.8) H 05/05/21 14:23 Eos # (Auto) 0.3 x10^3/uL (0.0-0.2) H 05/05/21 14:23 Baso # (Auto) 0.2 X10^3/uL (0.0-0.1) H 05/05/21 14:23 Absolute Nucleated RBC 0.0 /100WBC 05/05/21 14:23 Plt Morphology Comment Normal (NORMAL) 05/05/21 14:23 RBC Morphology Abnormal (NORMAL) A 05/05/21 14:23 Hypochromasia Slight A 05/05/21 14:23 Anisocytosis 1+ A 05/05/21 14:23 Microcytosis 1+ A 05/05/21 14:23 Ovalocytes Present 05/05/21 14:23 PT 12.8 SECONDS (11.8-14.3) 05/05/21 14:23 INR Target Range - 05/05/21 14:23 INR 1.01 (0.8-1.3) 05/05/21 14:23 APTT 36.1 SECONDS (22.9-36.5) 05/05/21 14:23 PTT Comment - 05/05/21 14:23 Sodium 134 mmol/L (136-145) L 05/05/21 14:23 Corrected Sodium 136 mmol/L (136-145) 05/05/21 14:23 Potassium 3.7 mmol/L (3.5-5.1) 05/05/21 14:23 Chloride 98 mmol/L (98-107) 05/05/21 14:23 Carbon Dioxide 27.1 mmol/L (21-32) 05/05/21 14:23 BUN 10 mg/dL (7-18) 05/05/21 14:23 Creatinine 1.00 mg/dL (0.55-1.02) 05/05/21 14:23 Est GFR (MDRD) Af Amer > 60 (>60) 05/05/21 14:23 Est GFR (MDRD) Non-Af > 60 (>60) 05/05/21 14:23 Glucose 199 mg/dL (65-99) H 05/05/21 14:23 Calcium 9.1 mg/dL (8.5-10.1) 05/05/21 14:23 Corrected Calcium 9.8 mg/dL (8.5-10.1) 05/05/21 14:23 Ferritin 73 ng/mL (8-252) 05/05/21 14:23 Total Bilirubin 0.30 mg/dL (0.2-1.0) 05/05/21 14:23 AST 20 Units/L (15-37) 05/05/21 14:23 ALT 25 Units/L (12-78) 05/05/21 14:23 Alkaline Phosphatase 154 Units/L (46-116) H 05/05/21 14:23 C-Reactive Protein 140.30 mg/L (0-3.0) H 05/05/21 14:23 Total Protein 8.3 g/dL (6.4-8.2) H 05/05/21 14:23 Albumin 3.1 g/dL (3.4-5.0) L 05/05/21 14:23 Globulin 5.2 g/dL (2.5-4.5) H 05/05/21 14:23 Albumin/Globulin Ratio 0.6 Ratio (1.1-2.1) L 05/05/21 14:23 SARS-CoV-2 (PCR) Negative (NEGATIVE) 05/05/21 14:35 Influenza Type A (PCR) Negative (NEGATIVE) 05/05/21 14:35 Influenza Type B (PCR) Negative (NEGATIVE) 05/05/21 14:35 RSV (PCR) Negative (NEGATIVE) 05/05/21 14:35 EKG Rate: 79 [place]: Normal Rhythm: NSR Block: None Hypertrophy: None ST: Normal Opioid Opioid Risk Tool Age (Hiro box if 16-45): No History of Preadolescent Sexual Abuse: No Total: 0 Total Score Risk Category: Low Risk Copyright: Albert HERNANDEZ predicting aberrant behaviors Diagnosis Discharge Problem: Gangrene of left foot
--- NOTE | 2021-05-05 14:32 | RAD ---
HISTORYPRE OP: LETTY, 1 VIEWCOMPARISONFebruary 2020TECHNIQUEChest x-ray single viewFINDINGSRestricted lung volumes are demonstrated. There is been interval development of diffuse bilateral coarsened interstitial airspace opacities within the right and left lung. There is no evidence of pneumothorax or free air in the pleural spaces are clear. The heart size is normal.IMPRESSIONRestricted lung volumes with interval development of diffuse, bilateral coarsened interstitial and subpleural airspace opacities and intervening ground-glass changes. Findings may represent any combination of acute pneumonia related to nonspecific viral or atypical organism infections including COVID-19, chronic interstitial lung disease, or combination of the above.Electronically signed by: LIZZETH MCCULLOUGH (May 05, 2021 14:31:00)
[2021-05-05 14:38] LABS: BASOPHILS # (AUTO) 0.2 X10^3/uL (0.0-0.1); BASOPHILS % (AUTO) 1.2 % (0.2-1.0); EOSINOPHILS # (AUTO) 0.3 x10^3/uL (0.0-0.2); EOSINOPHILS % (AUTO) 2.1 % (0.9-2.9); HEMOGLOBIN 8.3 g/dL (12.0-16.0); LYMPHOCYTES # (AUTO) 3.6 X10^3/uL (1.3-2.9); LYMPHOCYTES % (AUTO) 28.5 % (21.0-51.0); MEAN CORPUSCULAR HEMOGLOBIN 20.7 pg (27.0-34.0); MEAN CORPUSCULAR HGB CONC 30.8 g/dL (33.0-35.0); MEAN CORPUSCULAR VOLUME 67.1 fL (80.0-100.0); MEAN PLATELET VOLUME 6.9 fL (7.4-11.0); MONOCYTES # (AUTO) 1.2 x10^3/uL (0.3-0.8); MONOCYTES % (AUTO) 9.2 % (0.0-13.0); NEUTROPHILS # (AUTO) 7.5 x10^3/uL (2.2-4.8); PLATELET COUNT 616 X10^3/uL (150.0-450.0); RED BLOOD COUNT 4.02 X10^6/uL (3.5-5.4); RED CELL DISTRIBUTION WIDTH 19.8 % (11.6-16.5); WHITE BLOOD COUNT 12.8 X10^3/uL (3.6-10.0)
[2021-05-05] MEDS ORDERED: NS 1000 ML 1,000 ML ONE (14:38)
--- NOTE | 2021-05-05 14:44 | RAD ---
Left foot three viewsIndication: Necrotic toes. Second 4th toe are dark.COMPARISONNo recent priorFINDINGSThere is postsurgical change from talocalcaneal fusion. 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 Post amputation of the great toe phalanges noted.There is gas around the 2nd toe phalanges, seen both on sagittal frontal images, gas beneath the narrow bed. No aggressive cortical destruction or periosteal reaction convincingly demonstrated on limited images.There may be swelling about the 4th toe, but no definite gas seen.IMPRESSION1. Postsurgical changes and degenerative changes as above2. Gas around the 2nd toe distal phalanges, concerning for necrotic tissue, abscess with underlying osteomyelitis not excluded, although there is no paul cortical destruction.3. Swelling of the 4th toe without soft tissue gas convincingly demonstrated. No specific evidence of osteomyelitis here but this is not entirely excluded.4. Postsurgical change from cuboid resection and hindfoot fusion.Electronically signed by: SIXTO GENAO (May 05, 2021 14:42:47)
[2021-05-05 14:51] LABS: ALANINE AMINOTRANSFERASE 25 Units/L (12-78); ALBUMIN 3.1 g/dL (3.4-5.0); ALKALINE PHOSPHATASE 154 Units/L (46-116); ASPARTATE AMINO TRANSFERASE 20 Units/L (15-37); BLOOD UREA NITROGEN 10 mg/dL (7-18); CALCIUM 9.1 mg/dL (8.5-10.1); CARBON DIOXIDE 27.1 mmol/L (21-32); CHLORIDE 98 mmol/L (98-107); COR CA(FOR HYPOALB) 9.8 mg/dL (8.5-10.1); COR NA(FOR HYPERGLY) 136 mmol/L (136-145); SODIUM 134 mmol/L (136-145); TOTAL PROTEIN 8.3 g/dL (6.4-8.2); eGFR NON BLACK RACES > 60 (>60)
[2021-05-05 14:55] LABS: ANISOCYTOSIS 1+; HYPOCHROMASIA SLIGHT; MICROCYTOSIS 1+; PLATELET MORPHOLOGY COMMENT NORMAL (NORMAL)
[2021-05-05 14:56] LABS: OVALOCYTES PRESENT
[2021-05-05] MEDS ORDERED: NS 100 ML IV 100 ML ONE (16:37)
[2021-05-05] MEDS ORDERED: LR 1000 ML IV 1,000 ML IV ONE (17:13)
[2021-05-05] MEDS: LR 1000 ML IV 1,000 ML IV SCH (17:25)
--- NOTE | 2021-05-05 18:10 | CT ---
HISTORYPT TO ER TO BE EVALUATED FOR NECROSIS, PT WAS REFFERED BY DR. ROMERO TO COME TO THE ER AND DR. LOVE TO SEE PTSTUDYCTA AORTA WITH RUNOFFCOMPARISONLeft foot series dated same day.TECHNIQUEMultiple axial images of the abdomen and pelvis were obtained from the mesenteric vasculature to the plantar surface of the feet both prior to and after the administration of IV contrast. 3D reconstructions were performed utilizing radial maximum intensity projection imaging. Dose reduction techniques including Automated Exposure Control (AEC) and adjustment of mA and kV were utilized.FINDINGSModerate to severe fibrosis of the lung bases. Hepatomegaly and hepatic steatosis. The visualized liver is otherwise unremarkable. Remaining solid organs are unremarkable. Small hiatal hernia. No obvious free air, free fluid, or pathologic lymphadenopathy. The visualized large and small bowel is unremarkable. The uterus is unremarkable. No suspicious adnexal lesions. Degenerative changes of the spine. Amputation of the right forefoot. Fusion of the talus and calcaneus of the left foot. Severe midfoot collapse with fragmentation of the midfoot. Amputation of the distal right great toe. Osteomyelitis is not entirely excluded. Soft tissue gas is seen about the distal 2nd left toe. The visualized osseous structures are unremarkable. Nonspecific thrombus is seen within the distal thoracic aorta (series 6, image 1 and series 12, image 47). The visualized celiac axis, renal arteries, SMA, and MARTHA are patent.Infrarenal abdominal aorta: Patent with mild atherosclerotic calcifications. No significant aneurysmal dilatation, focal stenosis, dissection, or extravasation.Common iliac arteries: Patent with mild atherosclerotic calcifications. No significant aneurysmal dilatation, focal stenosis, dissection, or extravasation.External iliac arteries: Patent with mild atherosclerotic calcifications. No significant aneurysmal dilatation, focal stenosis, dissection, or extravasation.Common femoral arteries: Patent with mild atherosclerotic calcifications. No significant aneurysmal dilatation, focal stenosis, dissection, or extravasation.Superficial femoral arteries: Patent without significant aneurysmal dilatation, focal stenosis, dissection, or extravasation.Popliteal arteries: Patent without significant aneurysmal dilatation, focal stenosis, dissection, or extravasation.Tibial vasculature: Are patent to the level of the ankles and then become diminished.IMPRESSIONOne. No significant aneurysmal dilatation, focal stenosis, dissection, or extravasation of the abdominal aorta and its major branching vessels. Diminished flow is seen within the bilateral tibial vasculature at the level of the ankle.Two. Constellation of findings of the left foot concerning for osteomyelitis. Recommend clinical/laboratory correlation.Three. Nonspecific thrombus is seen within the distal thoracic aorta as above.Electronically signed by: KORY ASHLEY (May 05, 2021 18:08:28)
--- NOTE | 2021-05-05 19:36 | DR.H&P ---
H&P History & Physical for Day of: H&P Date: 05/05/21 Chief Complaint Chief Complaint: Gangrenous changes left 2nd and 3rd toes with ischemic changes to left lateral foot. Allergies Allergies Allergy/AdvReac Type Severity Reaction Status Date / Time clonidine Allergy Verified 05/05/21 15:14 hydrocodone Allergy Verified 05/05/21 15:14 Cgbwhhb-Vcu-Hqp Reductase Allergy Verified 05/05/21 15:14 Inhibitor dextrose 5 % in water AdvReac Verified 05/05/21 15:14 [From Zyvox] linezolid [From Zyvox] AdvReac Verified 05/05/21 15:14 History of Present Illness History of Present Illness: 50 year-old female with significant history of diabetes and right transmetatarsal amputation and amputation left great toe who presents now with gangrenous changes of the left 2nd and 3rd toes as well as questionable gangrenous changes of the left lateral foot. Patient denies significant pain and has significant anxiety. 2 weeks ago was positive for COVID. She did not require hospitalization and the only complaints were nausea and vomiting. Tested negative at her primary care physician's office 2 days prior to this and was negative. PCP noted chest x-ray to show "pneumonia" Past Medical History Past Medical History: Diabetes Additional Medical History: Right transmetatarsal amputation, ray amputation left great toe Past Surgical History Surgical History: Other (as above ) Family History Family Medical History: Diabetes Mellitus, Cancer and Coronary Artery Disease Social History Does patient currently use any type of tobacco product: No Have you used tobacco products in the last 12 months: No Type of Tobacco Use: None Does any household member use tobacco: No Alcohol Use: None Medications Home Medications: clonidine Allergy (Verified 05/05/21 15:14) hydrocodone Allergy (Verified 05/05/21 15:14) Apildit-Apx-Dpw Reductase Inhibitor Allergy (Verified 05/05/21 15:14) dextrose 5 % in water [From Zyvox] Adverse Reaction (Verified 05/05/21 15:14) linezolid [From Zyvox] Adverse Reaction (Verified 05/05/21 15:14) Cipro Humulin 70/30 Lansoprozole lisinopril-HCTZ Metformin Percocet Ozempic paroxetine temazepam tizanidine Labs Result Diagrams: 05/05/21 14:23 05/05/21 14:23 Labs: Laboratory WBC 12.8 X10^3/uL (3.6-10.0) H 05/05/21 14:23 RBC 4.02 X10^6/uL (3.5-5.4) 05/05/21 14:23 Hgb 8.3 g/dL (12.0-16.0) L 05/05/21 14:23 Hct 27.0 % (36.0-47.0) L 05/05/21 14:23 MCV 67.1 fL (80.0-100.0) L 05/05/21 14:23 MCH 20.7 pg (27.0-34.0) L 05/05/21 14:23 MCHC 30.8 g/dL (33.0-35.0) L 05/05/21 14:23 RDW 19.8 % (11.6-16.5) H 05/05/21 14:23 Plt Count 616 X10^3/uL (150.0-450.0) H 05/05/21 14:23 Plt Count Comment Increased (ADEQUATE) A 05/05/21 14:23 MPV 6.9 fL (7.4-11.0) L 05/05/21 14:23 Neut % (Auto) 59.0 % (42.0-75.0) 05/05/21 14:23 Lymph % (Auto) 28.5 % (21.0-51.0) 05/05/21 14:23 [place] % (Auto) 9.2 % (0.0-13.0) 05/05/21 14:23 Eos % (Auto) 2.1 % (0.9-2.9) 05/05/21 14:23 Baso % (Auto) 1.2 % (0.2-1.0) H 05/05/21 14:23 Neut # (Auto) 7.5 x10^3/uL (2.2-4.8) H 05/05/21 14:23 Lymph # (Auto) 3.6 X10^3/uL (1.3-2.9) H 05/05/21 14:23 [place] # (Auto) 1.2 x10^3/uL (0.3-0.8) H 05/05/21 14:23 Eos # (Auto) 0.3 x10^3/uL (0.0-0.2) H 05/05/21 14:23 Baso # (Auto) 0.2 X10^3/uL (0.0-0.1) H 05/05/21 14:23 Absolute Nucleated RBC 0.0 /100WBC 05/05/21 14:23 Plt Morphology Comment Normal (NORMAL) 05/05/21 14:23 RBC Morphology Abnormal (NORMAL) A 05/05/21 14:23 Hypochromasia Slight A 05/05/21 14:23 Anisocytosis 1+ A 05/05/21 14:23 Microcytosis 1+ A 05/05/21 14:23 Ovalocytes Present 05/05/21 14:23 PT 12.8 SECONDS (11.8-14.3) 05/05/21 14:23 INR Target Range - 05/05/21 14:23 INR 1.01 (0.8-1.3) 05/05/21 14:23 APTT 36.1 SECONDS (22.9-36.5) 05/05/21 14:23 PTT Comment - 05/05/21 14:23 Sodium 134 mmol/L (136-145) L 05/05/21 14:23 Corrected Sodium 136 mmol/L (136-145) 05/05/21 14:23 Potassium 3.7 mmol/L (3.5-5.1) 05/05/21 14:23 Chloride 98 mmol/L (98-107) 05/05/21 14:23 Carbon Dioxide 27.1 mmol/L (21-32) 05/05/21 14:23 BUN 10 mg/dL (7-18) 05/05/21 14:23 Creatinine 1.00 mg/dL (0.55-1.02) 05/05/21 14:23 Est GFR (MDRD) Af Amer > 60 (>60) 05/05/21 14:23 Est GFR (MDRD) Non-Af > 60 (>60) 05/05/21 14:23 Glucose 199 mg/dL (65-99) H 05/05/21 14:23 POC Glucose (mg/dL) 160 mg/dL (65-99) H 05/05/21 17:09 Calcium 9.1 mg/dL (8.5-10.1) 05/05/21 14:23 Corrected Calcium 9.8 mg/dL (8.5-10.1) 05/05/21 14:23 Ferritin 73 ng/mL (8-252) 05/05/21 14:23 Total Bilirubin 0.30 mg/dL (0.2-1.0) 05/05/21 14:23 AST 20 Units/L (15-37) 05/05/21 14:23 ALT 25 Units/L (12-78) 05/05/21 14:23 Alkaline Phosphatase 154 Units/L (46-116) H 05/05/21 14:23 C-Reactive Protein 140.30 mg/L (0-3.0) H 05/05/21 14:23 Total Protein 8.3 g/dL (6.4-8.2) H 05/05/21 14:23 Albumin 3.1 g/dL (3.4-5.0) L 05/05/21 14:23 Globulin 5.2 g/dL (2.5-4.5) H 05/05/21 14:23 Albumin/Globulin Ratio 0.6 Ratio (1.1-2.1) L 05/05/21 14:23 SARS-CoV-2 (PCR) Negative (NEGATIVE) 05/05/21 14:35 Influenza Type A (PCR) Negative (NEGATIVE) 05/05/21 14:35 Influenza Type B (PCR) Negative (NEGATIVE) 05/05/21 14:35 RSV (PCR) Negative (NEGATIVE) 05/05/21 14:35 Review of Systems Constitutional: Other (does c/omsome pain with movement of gangrenous left toes ) Eyes: No Symptoms Reported ENT: No Symptoms Reported Respiratory: No Symptoms Reported Cardiovascular: No Symptoms Reported Gastrointestinal: Other (Has had nausea and vomiting now resloved ) Genitourinary: No Symptoms Reported Musculoskeletal: No Symptoms Reported Skin: Other (see HPI) Neurological: No Symptoms Reported Physical Exam Vital Signs: Temperature 96.9 F Pulse Rate 84 Respiratory Rate 22 Blood Pressure [Right Arm] 110/58 Blood Pressure [Left Arm] 137/63 Blood Pressure 110/70 O2 Sat by Pulse Oximetry 95 Oriented: Normal, Time, Person and Place Eyes: Normal Ear: Normal Nose: Normal Throat: Normal Respiratory: Clear Throughout ( CXR shows b/l lower lobe scarring vs infiltrate) Cardiovascular: Normal : Normal Auscultation: Bowel Sounds: Normal Palpation: Normal Tenderness: Normal Skin: Other (healed right transmetatarsal amputation, healed left great toe ray amputation,gangrenous changes entire left 2nd toe and end of 3rd tow and 4 cm area dark necrosis of the lateral left foot over mid shaft of the 5th metatarsal bone ) Musculoskeletal: Normal Psychiatric: Anxiety (takes anti-anxiety medicaetions regularly, patient is very anxious and tearful.) Mood Description: Anxious Speech Pattern: Clear and Appropriate Assessment/Plan (1) Gangrene of left foot: Status: Acute Plan: Iv antibiotics, heparin drip, CT aorta with b/l runoff (2) Diabetes mellitus: Status: Chronic Plan: treat with routine q 6 hr blood sugars and sliding scale insulin (3) Hypertension: Status: Chronic Plan: usual home medications (4) Osteomyelitis of foot: Status: Acute Plan: Changes of both feet. Review H&P Reviewed: Yes Patient was examined?: Yes
[2021-05-05] MEDS: DILAUDID INJ IVP PRN (20:59)
[2021-05-05] MEDS: ZOSYN VIAL 3.375 GRAMS 3.375 G in NS 100 ML IV + SPIKE MINIBAG* 100 ML IV SCH (20:59)
[2021-05-05] MEDS: HumuLIN R SC PRN (21:59)
[2021-05-05] MEDS ORDERED: HEPARIN SODIUM IN D5W 25,000 UNITS/500 ML BAG ONE (22:44)
[2021-05-05] MEDS ORDERED: HEPARIN SODIUM IN D5W 25,000 UNITS/500 ML BAG IV PRN (23:16)
[2021-05-05] MEDS ORDERED: HEPARIN SODIUM INJ 5000 UNITS IVP ONE (23:24)
[2021-05-05] MEDS ORDERED: HEPARIN SODIUM INJ 5000 UNITS ONE (23:37)
[2021-05-06] MEDS: DILAUDID INJ IVP PRN ×5 (00:41→22:52)
[2021-05-06] MEDS: ZOSYN VIAL 3.375 GRAMS 3.375 G in NS 100 ML IV + SPIKE MINIBAG* 100 ML IV SCH ×4 (02:58→21:00)
[2021-05-06] MEDS: LR 1000 ML IV 1,000 ML IV SCH (07:53)
[2021-05-06] MEDS ORDERED: PROTONIX TAB 40 MG PO SCH (09:00)
[2021-05-06] MEDS ORDERED: ZESTRIL TAB 20 MG ONE (09:26)
[2021-05-06] MEDS: ZESTORETIC 20/25 MG PO SCH (09:28)
--- NOTE | 2021-05-06 12:13 | NOTE.SOAP ---
Soap Note Note for Day of Date of Exam: 05/06/21 Subjective Data Subjective Data: Admitted with gangrenous changes of the toes left foot. Hx of diabetes and right transmetatarsal amputation. did well last night . No progression of problem. On Heparin drip Objective Data Temperature: 97.6 F Pulse Rate: 114 Respiratory Rate: 20 Blood Pressure: 141/64 O2 Sat by Pulse Oximetry: 94 Objective Data: Left foot unchanged. Complete gangrene of the left second toe , Question of osteomyelitis of left 2nd toe. left 4th toe with ischemic changes and area left lateral foot. CTA shows normal vessels to ankle but the become very small b/l at the ankles. Question of thoracic aortic thrombus. PTT= 40.4 Assessment Assessment: gangrenous left toes, possible embolic, continue on the heparin drip , Will probably need on table arteriogram to asses blood flow to the pedal arch with possible intervention. Plan Plan: see above
[2021-05-06] MEDS: HumuLIN R SC PRN ×2 (12:46→23:02)
[2021-05-06] MEDS ORDERED: HEPARIN SODIUM INJ 5000 UNITS IVP ONE (19:35)
[2021-05-06] MEDS: ATIVAN TAB 1 MG PO PRN (23:00)
[2021-05-06] MEDS: HEPARIN SODIUM IN D5W 25,000 UNITS/500 ML BAG IV PRN ×2 (23:45)
[2021-05-07] MEDS: DILAUDID INJ IVP PRN ×5 (03:25→20:50)
[2021-05-07] MEDS: ZOSYN VIAL 3.375 GRAMS 3.375 G in NS 100 ML IV + SPIKE MINIBAG* 100 ML IV SCH ×4 (03:33→21:00)
[2021-05-07] MEDS ORDERED: HEPARIN SODIUM INJ 5000 UNITS ONE ×2 (04:32→18:09)
[2021-05-07] MEDS ORDERED: HEPARIN SODIUM INJ 5000 UNITS IVP ONE ×2 (04:56→18:18)
[2021-05-07] MEDS: ATIVAN TAB 1 MG PO PRN ×2 (08:31→20:53)
[2021-05-07] MEDS: ZESTORETIC 20/25 MG PO SCH (08:32)
[2021-05-07] MEDS ORDERED: HEPARIN SODIUM IN D5W 25,000 UNITS/500 ML BAG ONE (15:06)
[2021-05-07] MEDS: HEPARIN SODIUM IN D5W 25,000 UNITS/500 ML BAG IV PRN (16:08)
[2021-05-07] MEDS: LR 1000 ML IV 1,000 ML IV SCH ×2 (16:08→20:52)
--- NOTE | 2021-05-07 17:20 | NOTE.SOAP ---
Soap Note Note for Day of Date of Exam: 05/07/21 Subjective Data Subjective Data: Patient with necrosis 2nd and 4th toes on the left foot. This is new. History of right transmetatarsal amputation. Tolerating heparin drip. No further progression of disease. Also with ischemic area to the lateral left foot. Objective Data Temperature: 98.4 F Pulse Rate: 90 Respiratory Rate: 18 Blood Pressure: 118/63 O2 Sat by Pulse Oximetry: 98 Objective Data: As above. No for the progression of ischemia of the left foot. CT angiogram shows major vessels to the left ankle appeared to be intact but pedal arch is markedly small. Assessment Assessment: Will plan on table arteriogram of left lower extremity possible intervention of pedal vessels if possible and amputation of the left 2nd and 4th toes. Plan Plan: see above
[2021-05-08] MEDS: DILAUDID INJ IVP PRN ×5 (03:16→20:15)
[2021-05-08] MEDS: ZOSYN VIAL 3.375 GRAMS 3.375 G in NS 100 ML IV + SPIKE MINIBAG* 100 ML IV SCH ×4 (03:18→20:20)
[2021-05-08] MEDS: HEPARIN SODIUM IN D5W 25,000 UNITS/500 ML BAG IV PRN (07:00)
[2021-05-08] MEDS ORDERED: LR 1000 ML IV 1,000 ML IV ONE (08:39)
[2021-05-08] MEDS ORDERED: ANCEF 1 GRAM IV PREMIX* 2 G/100 ML BAG IV ONE (08:39)
[2021-05-08] MEDS ORDERED: PEPCID 20 MG IV PREMIX* 20 MG/50 ML BAG IV ONE (08:47)
[2021-05-08] MEDS ORDERED: FENTANYL VIAL INJ 100 mcg ONE (09:02)
[2021-05-08] MEDS ORDERED: MARCAINE 0.25% INJ ONE (09:06)
[2021-05-08] MEDS ORDERED: HEPARIN SODIUM INJ 5000 UNITS ONE (09:06)
[2021-05-08] MEDS ORDERED: HEPARIN SODIUM IN D5W 75,000 UNITS/1,500 ML BAG ONE (09:07)
[2021-05-08] MEDS ORDERED: BRIDION ONE (09:17)
[2021-05-08] MEDS ORDERED: ZEMURON 50 MG VIAL ONE (09:18)
[2021-05-08] MEDS ORDERED: DIPRIVAN VIAL ONE (09:31)
[2021-05-08] MEDS ORDERED: NEO-SYNEPHRINE INJ ONE (09:31)
[2021-05-08] MEDS ORDERED: EPHEDRINE SULFATE INJ ONE (09:31)
[2021-05-08] MEDS ORDERED: VERSED ONE (09:31)
[2021-05-08] MEDS ORDERED: SUPRANE ONE (09:31)
[2021-05-08] MEDS ORDERED: XYLOCAINE 2 % (PLAIN) ONE (09:31)
[2021-05-08] MEDS ORDERED: MARCAINE or SENSORCAINE 0.25% WITH EPI IJ ONE (09:36)
[2021-05-08] MEDS ORDERED: HEPARIN SODIUM IN D5W 25,000 UNITS/500 ML BAG ONE (10:33)
[2021-05-08] MEDS ORDERED: NITROGLYCERIN IV PREMIX 50 MG 50 MG/250 ML BAG ONE (10:41)
[2021-05-08] MEDS ORDERED: NS IV NR ×2 (11:30)
[2021-05-08] MEDS ORDERED: ACTIVASE CATHFLO IV NR ×2 (11:30)
[2021-05-08] MEDS ORDERED: DILAUDID INJ ONE (12:49)
[2021-05-08] MEDS ORDERED: BENADRYL INJ 50 MG VIAL IVP PRN (12:55)
[2021-05-08] MEDS ORDERED: PHENERGAN INJ 25 MG IM PRN (12:55)
[2021-05-08] MEDS ORDERED: BARHEMSYS INJ IVP PRN (12:55)
--- NOTE | 2021-05-08 12:55 | OR.IMMED ---
IMMEDIATE POST-OP NOTE Immediate Post-Op Note Pre-Op Diagnosis: Ischemic left foot with gangrene left 2nd and 4th toes , p ossible embolus Post-Op Diagnosis: Embolic obstruction all 3 trifurcation vessels distally left foot Procedure: Description of Procedure: Diagnostic aortogram, diagnostic arteriogram left lower extremity, AngioJet left anterior tibial artery, balloon angioplasty left anterior tibial artery,pulse spray of left posterior tibial artery with TPA, AngioJet left posterior tibial artery, balloon angioplasty left posterior tibial artery, selective catheterization of left anterior tibial artery, selective catheterization left posterior tibial artery. Surgeon/Manager Case: [facility] Findings: left 2nd and 4th toes Specimens Removed: left second and 4th toes Estimated Blood Loss: < 25 cc Drains: NONE Complications: none Progress Notes: return to floor, continue heparin drip, start ASA and Eliquis Final Diagnosis: Embolic occlusion all three distal trifurcation arteries of left foot
[2021-05-08] MEDS: ZESTORETIC 20/25 MG PO SCH (13:04)
[2021-05-08] MEDS: ATIVAN TAB 1 MG PO PRN (17:52)
[2021-05-08] MEDS ORDERED: ELIQUIS PO SCH (21:00)
--- NOTE | 2021-05-08 22:03 | NOTE.SOAP ---
Soap Note Note for Day of Date of Exam: 05/08/21 Subjective Data Subjective Data: S/P l of occluded trifurcation vessels of left calf and balloon angioplasty of the left AT and PT arteries with amputation of left 2nd and 4th toes. Objective Data Temperature: 97.9 F Pulse Rate: 83 Respiratory Rate: 19 Blood Pressure: 148/79 O2 Sat by Pulse Oximetry: 94 Objective Data: Pallor of left 3rd toe. Excellent doppler signal in the left PT artery Assessment Assessment: resolution of trifurcation emboli , amputation of left 2nd and 4th toes Plan Plan: I think we have provided flow to save the left foot . Have discussed with Dr. Mckeon and he agrees that most likely she will require amputation of the remaining toes on the left. Will continue heparin drip and he will discuss amputation of the remaining toes with the patient. On discharge will need to be on Eliquis and Aspirin.
[2021-05-09] MEDS: DILAUDID INJ IVP PRN ×5 (00:35→21:06)
[2021-05-09] MEDS: ZOSYN VIAL 3.375 GRAMS 3.375 G in NS 100 ML IV + SPIKE MINIBAG* 100 ML IV SCH ×4 (03:35→22:30)
[2021-05-09] MEDS ORDERED: HEPARIN SODIUM INJ 5000 UNITS ONE (03:55)
[2021-05-09] MEDS ORDERED: HEPARIN SODIUM IN D5W 25,000 UNITS/500 ML BAG ONE (04:18)
[2021-05-09] MEDS: HEPARIN SODIUM IN D5W 25,000 UNITS/500 ML BAG IV PRN ×2 (04:30→17:45)
[2021-05-09] MEDS ORDERED: HEPARIN SODIUM INJ 5000 UNITS IVP ONE ×2 (04:30→10:19)
[2021-05-09 06:29] LABS: BASOPHILS # (AUTO) 0.2 X10^3/uL (0.0-0.1); BASOPHILS % (AUTO) 1.3 % (0.2-1.0); EOSINOPHILS # (AUTO) 0.4 x10^3/uL (0.0-0.2); EOSINOPHILS % (AUTO) 3.1 % (0.9-2.9); HEMATOCRIT 20.8 % (36.0-47.0); LYMPHOCYTES % (AUTO) 22.2 % (21.0-51.0); MEAN CORPUSCULAR HGB CONC 31.6 g/dL (33.0-35.0); MEAN CORPUSCULAR VOLUME 66.5 fL (80.0-100.0); MEAN PLATELET VOLUME 6.8 fL (7.4-11.0); MONOCYTES # (AUTO) 0.7 x10^3/uL (0.3-0.8); MONOCYTES % (AUTO) 5.1 % (0.0-13.0); NEUTROPHILS # (AUTO) 9.3 x10^3/uL (2.2-4.8); NEUTROPHILS % (AUTO) 68.3 % (42.0-75.0); PLATELET COUNT 457 X10^3/uL (150.0-450.0); RED BLOOD COUNT 3.12 X10^6/uL (3.5-5.4); RED CELL DISTRIBUTION WIDTH 19.2 % (11.6-16.5); WHITE BLOOD COUNT 13.6 X10^3/uL (3.6-10.0)
[2021-05-09 06:41] LABS: BLOOD UREA NITROGEN 2 mg/dL (7-18); CALCIUM 8.8 mg/dL (8.5-10.1); CARBON DIOXIDE 26.2 mmol/L (21-32); CHLORIDE 100 mmol/L (98-107); COR NA(FOR HYPERGLY) 139 mmol/L (136-145); CREATININE 0.68 mg/dL (0.55-1.02); SODIUM 137 mmol/L (136-145); eGFR NON BLACK RACES > 60 (>60)
[2021-05-09 07:55] LABS: HEMOGLOBIN 6.6 g/dL (12.0-16.0)
[2021-05-09 07:59] LABS: PLATELET MORPHOLOGY COMMENT NORMAL (NORMAL)
[2021-05-09 08:00] LABS: ANISOCYTOSIS 1+; HYPOCHROMASIA SLIGHT; MICROCYTOSIS 1+
[2021-05-09 08:01] LABS: OVALOCYTES PRESENT
[2021-05-09] MEDS ORDERED: TYLENOL 325 MG TAB PO ONE ×2 (08:18→12:28)
[2021-05-09] MEDS ORDERED: BENADRYL INJ 50 MG VIAL IVP ONE (08:19)
[2021-05-09] MEDS: ASPIRIN EC 81 MG PO SCH (08:22)
[2021-05-09] MEDS: ATIVAN TAB 1 MG PO PRN ×2 (08:30→18:00)
[2021-05-09] MEDS: ZESTORETIC 20/25 MG PO SCH ×2 (10:08→11:14)
--- NOTE | 2021-05-09 10:40 | NOTE.SOAP ---
Soap Note Note for Day of Date of Exam: 05/09/21 Subjective Data Subjective Data: Mrs. Andrews is a 50 year old female with a PMHx of PAD and DM. She is also s/p left LE vascular procedure with Dr. Doss on 05/08/21. Patient presented to the ED with wounds to the left foot. She is well known to Dr. Mckeon and our office. She has been dealing with LE wounds off and on for some time. Patient states she is doing better today after a few days of antibiotics. The left foot is clean, dry and intact. No strike through. She has some pain to the left foot and she was premedicated prior to the dressing change. She denies any f/c/n/v/sob/calf pain. Objective Data Objective Data: Patient is alert and oriented x3. DP and PT pulses are not palpable on the left. Cap fill is about 5 sec. The 3rd digit is dusky. No hair present. Skin to the LE is atrophic and xerotic. Prior incision is coapted with retention sutures intact. No purulence noted. Mild erythema. Sensation is diminished to light touch on the left Prior [place], 2nd, and 4th toe amputation. Assessment Assessment: Mrs. Andrews is a 50 year old female with DM and PAD. S/p vascular procedure on the left. Her left 3rd digit does not appear viable. Patient would benefit from a Transmetatarsal amputation. Leaving the 3rd and 5th digit would not give her a stable foot and she would be at risk for transfer lesions. She is currently with VSS and NAD. Plan Plan: Dressed the left foot with 4x4, cast padding and shine. NWB on the left. Continue antibiotics. Plan for the OR on 05/10/21 for TMA NPO after midnight Please hold Heparin drip at 6 am on 05/10/21 for the surgery Will monitor Please do not hesitate to contact me with questions or concerns. Subhash Polk, Ankle and Foot Fellow [phone]
[2021-05-09] MEDS ORDERED: BENADRYL INJ 50 MG VIAL ONE (12:28)
--- NOTE | 2021-05-09 12:59 | NOTE.SOAP ---
Soap Note Note for Day of Date of Exam: 05/09/21 Subjective Data Subjective Data: See note from Podiatry. Agree with left transmetatarsal amputation Objective Data Temperature: 98.1 F Pulse Rate: 101 Respiratory Rate: 20 Blood Pressure: 130/63 O2 Sat by Pulse Oximetry: 98 Objective Data: left foot warm, ischemic changes left 3rd toe. Hgb = 6.6 grams Assessment Assessment: Continue heparin drip , for transmetatarsal amputation of the left foot tomorrow. Plan Plan: as above , transfuse 2 units of blood
[2021-05-09] MEDS ORDERED: NS 500 ML IV 500 ML IV ONE (13:20)
--- NOTE | 2021-05-09 13:59 | DR.OPNOTE ---
OP NOTE Pre-Op Diagnosis: Ischemic left foot with CT angiogram showing no good flow below the ankle Post-Op Diagnosis: Embolic occlusion of all 3 trifurcation vessels of the left leg distally Procedure Date Date Of Procedure: 05/08/21 Procedure: This patient had presented with gangrenous changes of the left 2nd and 4th toes. She has a history of right transmetatarsal amputation and ray amputation of the left great toe. Repeat angiogram showed abrupt stop of contrast at the left ankle. The patient was taken to the operating suite for on table arteriogram, possible intervention and amputation of the left 2nd and 4th toes. She was taken to the operating suite and general endotracheal anesthesia induced. The right groin and entire left leg prepped and draped in sterile fashion. Timeout for the procedure obtained. Ultrasonography used to identify the right common femoral artery and ultrasonography used to guide puncture of this artery and a 0.014 inch guidewire placed without difficulty. Incision made over the guidewire at the skin level and micro puncture sheath placed over the guidewire into the right common femoral artery. The small wire exchanged for a 0.035 inch advantage guidewire. The micro sheath exchanged for a 5 [place] short vascular sheath. The patient was heparinized with 3000 units of intravenous heparin. Omni catheter placed over the guidewire into the aorta and diagnostic aortogram carried out showing normal distal aorta, internal iliac vessels and normal extra iliac vessels. Omni catheter used to guide the 0.035 inch wire down to the left common femoral artery. Omni catheter exchanged for a trailblazer catheter and sequential diagnostic arteriogram carried out of the entire left leg showing normal superficial femoral and profunda arteries. Normal popliteal artery, normal take off of trifurcation vessels with evidence of embolic phenomenon and occlusion of all trifurcation vessels approximately 6 inches above the ankle. At this point the small 5 [place]ian sheath was exchanged for a 7 [place]ian destination sheet which was placed over the guidewire and parked in the left common femoral artery. Trailblazer catheter used to guide the catheter and selective catheterization down into the patient's portion of the left answer to artery and on table arteriogram showed complete distal occlusion with good collateral flow at the ankle. I could not get the guidewire beyond the ankle joint. We then exchanged the 0.035 inch wire for a 0.014 inch wire in over this wire replaced AngioJet device to remove clot from the left answer to artery then it open with a 2.5 mm x 100 mm [employer] coyote balloon. Repeat a rteriogram showed very little effect on the distal left answer to artery. At this point we back to the trailblazer catheter up into the tibial peroneal trunk and guide the guidewire down the posterior tibial artery across the clot into the pedal arch. AngioJet was then used to spray TPA over the entire clot in this allowed to dwell for 20 minutes. We then used the AngioJet suction device to remove clot and repeat arteriogram showed reestablishment of flow all the way down the left posterior to artery to the pedal arch. This then ballooned open with a 3 mm x 220 mm [employer] coyote balloon. Procedure arteriogram showed good flow all the way to the foot and around the pedal arch. This point we elected to stop. The destination sheet was pulled back into the aorta and the guidewire placed up the aorta. The destination sheath removed and replaced with a and you still device used to close the puncture of the right common femoral artery. Patient will require lifelong anticoagulation and antiplatelet therapy. We then turned our attention to the ischemic, gangrenous toes of the left foot i.e. left 2nd and 4th toes. Both were incised at the base with elliptical incision and # 15 knife blade and electrocautery used to dissect the joint space at the metatarsal phalangeal joint. Ronguer catheter used to remove the metatarsal heads of both the 2nd 4th toes metatarsal heads . The skin then approximated with mattress sutures of 3-0 nylon. Dressing applied. The patient was extubated and taken to the PACU in good condition. Type of Anesthesia: General Anesthetic w/ETT Findings: Embolic occlusion all 3 distal trifurcation vessels on the left leg. Specimen/Pathology: none Type of Fluids Used:: Lactated Ringers EBL: < 100cc Drains/Tubes Placed: None Drains/Tubes Comment: none Complications:: none Needle/Sponge Count:: correct Disposition/Condition: Pt. tolerated procedure without difficulty. Extubated in the OR and taken to PACU in stable condition.
[2021-05-09] MEDS: LR 1000 ML IV 1,000 ML IV SCH ×2 (19:27→22:31)
[2021-05-09 23:51] LABS: HEMOGLOBIN 8.4 g/dL (12.0-16.0)
[2021-05-10] MEDS: ATIVAN TAB 1 MG PO PRN ×2 (01:44→18:16)
[2021-05-10] MEDS: DILAUDID INJ IVP PRN ×2 (01:45→08:39)
[2021-05-10] MEDS: LR 1000 ML IV 1,000 ML IV SCH (01:45)
[2021-05-10] MEDS: ZOSYN VIAL 3.375 GRAMS 3.375 G in NS 100 ML IV + SPIKE MINIBAG* 100 ML IV SCH ×3 (03:26→15:41)
[2021-05-10 04:48] LABS: BASOPHILS # (AUTO) 0.1 X10^3/uL (0.0-0.1); BASOPHILS % (AUTO) 0.6 % (0.2-1.0); EOSINOPHILS # (AUTO) 0.4 x10^3/uL (0.0-0.2); EOSINOPHILS % (AUTO) 3.2 % (0.9-2.9); HEMATOCRIT 27.5 % (36.0-47.0); HEMOGLOBIN 8.7 g/dL (12.0-16.0); LYMPHOCYTES # (AUTO) 2.8 X10^3/uL (1.3-2.9); LYMPHOCYTES % (AUTO) 21.1 % (21.0-51.0); MEAN CORPUSCULAR HEMOGLOBIN 22.7 pg (27.0-34.0); MEAN CORPUSCULAR HGB CONC 31.9 g/dL (33.0-35.0); MEAN CORPUSCULAR VOLUME 71.4 fL (80.0-100.0); MEAN PLATELET VOLUME 6.9 fL (7.4-11.0); MONOCYTES # (AUTO) 0.4 x10^3/uL (0.3-0.8); MONOCYTES % (AUTO) 2.7 % (0.0-13.0); NEUTROPHILS # (AUTO) 9.6 x10^3/uL (2.2-4.8); NEUTROPHILS % (AUTO) 72.4 % (42.0-75.0); PLATELET COUNT 382 X10^3/uL (150.0-450.0); RED BLOOD COUNT 3.85 X10^6/uL (3.5-5.4); RED CELL DISTRIBUTION WIDTH 21.4 % (11.6-16.5); WHITE BLOOD COUNT 13.2 X10^3/uL (3.6-10.0)
[2021-05-10 04:55] LABS: ALANINE AMINOTRANSFERASE 13 Units/L (12-78); ALBUMIN 2.2 g/dL (3.4-5.0); ALKALINE PHOSPHATASE 152 Units/L (46-116); ASPARTATE AMINO TRANSFERASE 17 Units/L (15-37); BLOOD UREA NITROGEN 2 mg/dL (7-18); CALCIUM 8.5 mg/dL (8.5-10.1); CARBON DIOXIDE 27.9 mmol/L (21-32); CHLORIDE 103 mmol/L (98-107); COR CA(FOR HYPOALB) 9.9 mg/dL (8.5-10.1); COR NA(FOR HYPERGLY) 140 mmol/L (136-145); SODIUM 138 mmol/L (136-145); TOTAL PROTEIN 6.7 g/dL (6.4-8.2); eGFR NON BLACK RACES > 60 (>60)
[2021-05-10 05:12] LABS: BAND NEUTROPHILS % 2 % (0-10); METAMYELOCYTES % 2
[2021-05-10 05:13] LABS: ANISOCYTOSIS 1+; BURR CELLS FEW; HYPOCHROMASIA SLIGHT; MICROCYTOSIS SLIGHT; OVALOCYTES FEW; PLATELET MORPHOLOGY COMMENT NORMAL (NORMAL); POIKILOCYTOSIS 1+; TEAR DROP CELLS FEW
[2021-05-10] MEDS: ZESTORETIC 20/25 MG PO SCH (08:31)
[2021-05-10] MEDS: ASPIRIN EC 81 MG PO SCH (08:33)
[2021-05-10] MEDS ORDERED: BETADINE SOLN ONE (10:17)
[2021-05-10] MEDS ORDERED: MARCAINE 0.25% INJ ONE (10:17)
[2021-05-10] MEDS ORDERED: DILAUDID INJ ONE (12:05)
[2021-05-10] MEDS ORDERED: FENTANYL VIAL INJ 100 mcg ONE (12:06)
[2021-05-10] MEDS ORDERED: PEPCID 20 MG IV PREMIX* 20 MG/50 ML BAG IV ONE (12:07)
[2021-05-10] MEDS ORDERED: VERSED ONE (12:44)
[2021-05-10] MEDS ORDERED: KETALAR ONE (12:44)
[2021-05-10] MEDS ORDERED: XYLOCAINE 2 % (PLAIN) ONE (12:44)
[2021-05-10] MEDS ORDERED: EPHEDRINE SULFATE INJ ONE (12:44)
[2021-05-10] MEDS ORDERED: DIPRIVAN VIAL ONE (12:44)
[2021-05-10] MEDS ORDERED: DECADRON INJ ONE (12:44)
[2021-05-10] MEDS ORDERED: DUONEB 0.5 MG/3 MG (3 mL) NEB ONE ×2 (13:55→13:59)
[2021-05-10] MEDS ORDERED: BENADRYL INJ 50 MG VIAL IVP PRN (13:57)
[2021-05-10] MEDS ORDERED: DILAUDID INJ IVP PRN (13:57)
[2021-05-10] MEDS ORDERED: BARHEMSYS INJ IVP PRN (13:57)
[2021-05-10] MEDS ORDERED: PHENERGAN INJ 25 MG IM PRN (13:57)
--- NOTE | 2021-05-10 14:47 | RAD ---
HISTORYPOST OP AMPUTATIONSTUDYFOOT x-ray three views, LEFTCOMPARISONX-ray 05/05/2021FINDINGSAmputation of the foot at the level of the distal metatarsals. Small amount of air is seen in the soft tissues. Diffuse soft tissue swelling is seen. Arthritic changes persist in the midfoot with likely prior resection or destruction of the cuboid bone, unchanged. Prior hardware fusion in the hindfoot.IMPRESSIONInterval amputation of the foot at the level of the distal metatarsals.Electronically signed by: Ruben Ac (May 10, 2021 14:45:20)
--- NOTE | 2021-05-10 15:07 | RAD ---
HISTORYDECREASED [id number] x-ray, 1 VIEWCOMPARISONX-ray 05/05/2021FINDINGSHeart is likely normal in size. Diffuse lung infiltrates have a peripheral predominance. These appear greater than prior study. Consider possible COVID-19 pneumonia or other atypical causes of pneumonia. Acute phase of chronic interstitial lung disease would be another possible etiology. No pneumothorax or pleural effusion is seen.IMPRESSIONWorsening lung infiltrates.Electronically signed by: Ruben Ac (May 10, 2021 15:06:21)
--- NOTE | 2021-05-10 15:08 | NOTE.SOAP ---
Soap Note Note for Day of Date of Exam: 05/10/21 Subjective Data Subjective Data: For left transmetatarsal amputation today and s/p revascularization of left foot with Angiojet and TPA thrombolysis of left PT artery with reconstitution of pedal arch. Objective Data Pulse Rate: 87 Respiratory Rate: 18 Blood Pressure: 116/55 O2 Sat by Pulse Oximetry: 96 Objective Data: mild discoloration of left 3rd toe with warm left foot and excellent triphasic u/s flow of both Dp and PT arteries. HGb = 8.7 up from 6.6 8.4 . K=+ 3.6 up from 3.3 and PTT = 84.5 this AM on heparin drip. Assessment Assessment: For left transmetarsal amputation later today. Plan Plan: If able will d/c home later today on Eliquis, aspirin and PO pain medications.
--- NOTE | 2021-05-10 19:17 | PCM.DCPLAN ---
DISCHARGE SUMMARY Admission Date Date of Admission: 04/08/21 Discharge Date Discharge Date: 05/10/21 Admission Diagnoses (1) Gangrene of left foot: Status: Acute (2) Diabetes mellitus: Status: Chronic (3) Hypertension: Status: Chronic (4) Osteomyelitis of foot: Status: Acute Discharge Medications Discharge Medications: Home Medication List hydrochlorothiazide 12.5 mg PO DAILY 05/06/21 [History] propranolol 40 mg PO TID 05/06/21 [History] ropinirole 1 mg PO HS 05/06/21 [History] apixaban [Eliquis] 5 mg PO BID #60 tab 05/10/21 [Rx] aspirin 81 mg PO DAILY #90 tab 05/10/21 [Rx] Prescriptions: apixaban [Eliquis] [facility] Doss aspirin [facility] Hospital Course Vital Signs: Temperature 97.6 F Pulse Rate [Left Radial] 99 Pulse Rate 87 Respiratory Rate 20 Blood Pressure [Right Arm] 138/85 Blood Pressure [Left Arm] 137/63 Blood Pressure 116/55 O2 Sat by Pulse Oximetry 92 Latest Lab Results: Laboratory Last Values WBC 13.2 X10^3/uL (3.6-10.0) H 05/10/21 04:17 RBC 3.85 X10^6/uL (3.5-5.4) 05/10/21 04:17 Hgb 8.7 g/dL (12.0-16.0) L 05/10/21 04:17 Hct 27.5 % (36.0-47.0) L 05/10/21 04:17 MCV 71.4 fL (80.0-100.0) L 05/10/21 04:17 MCH 22.7 pg (27.0-34.0) L 05/10/21 04:17 MCHC 31.9 g/dL (33.0-35.0) L 05/10/21 04:17 RDW 21.4 % (11.6-16.5) H 05/10/21 04:17 Plt Count 382 X10^3/uL (150.0-450.0) 05/10/21 04:17 Plt Count Comment Adequate (ADEQUATE) 05/10/21 04:17 MPV 6.9 fL (7.4-11.0) L 05/10/21 04:17 Neut % (Auto) 72.4 % (42.0-75.0) 05/10/21 04:17 Lymph % (Auto) 21.1 % (21.0-51.0) 05/10/21 04:17 Mchenry % (Auto) 2.7 % (0.0-13.0) 05/10/21 04:17 Eos % (Auto) 3.2 % (0.9-2.9) H 05/10/21 04:17 Baso % (Auto) 0.6 % (0.2-1.0) 05/10/21 04:17 Neut # (Auto) 9.6 x10^3/uL (2.2-4.8) H 05/10/21 04:17 Lymph # (Auto) 2.8 X10^3/uL (1.3-2.9) 05/10/21 04:17 Mchenry # (Auto) 0.4 x10^3/uL (0.3-0.8) 05/10/21 04:17 Eos # (Auto) 0.4 x10^3/uL (0.0-0.2) H 05/10/21 04:17 Baso # (Auto) 0.1 X10^3/uL (0.0-0.1) 05/10/21 04:17 Absolute Nucleated RBC 0.2 /100WBC 05/10/21 04:17 Total Counted 100 05/10/21 04:17 Neutrophils % (Manual) 60 % (39-76) 05/10/21 04:17 Band Neutrophils % 2 % (0-10) 05/10/21 04:17 Lymphocytes % (Manual) 27 % (13-43) 05/10/21 04:17 Monocytes % (Manual) 5 % (4-9) 05/10/21 04:17 Eosinophils % (Manual) 4 % (0-6) 05/10/21 04:17 Metamyelocytes % 2 05/10/21 04:17 Plt Morphology Comment Normal (NORMAL) 05/10/21 04:17 RBC Morphology Abnormal (NORMAL) A 05/10/21 04:17 Hypochromasia Slight A 05/10/21 04:17 Poikilocytosis 1+ A 05/10/21 04:17 Anisocytosis 1+ A 05/10/21 04:17 Microcytosis Slight A 05/10/21 04:17 Tear Drop Cells Few 05/10/21 04:17 Ovalocytes Few 05/10/21 04:17 Patterson Cells Few 05/10/21 04:17 PT 13.3 SECONDS (11.8-14.3) 05/06/21 06:17 INR Target Range - 05/06/21 06:17 INR 1.07 (0.8-1.3) 05/06/21 06:17 APTT 84.5 SECONDS (22.9-36.5) H 05/10/21 04:17 PTT Comment - 05/10/21 04:17 Sodium 138 mmol/L (136-145) 05/10/21 04:17 Corrected Sodium 140 mmol/L (136-145) 05/10/21 04:17 Potassium 3.6 mmol/L (3.5-5.1) 05/10/21 04:17 Chloride 103 mmol/L (98-107) 05/10/21 04:17 Carbon Dioxide 27.9 mmol/L (21-32) 05/10/21 04:17 BUN 2 mg/dL (7-18) L 05/10/21 04:17 Creatinine 0.70 mg/dL (0.55-1.02) 05/10/21 04:17 Est GFR (MDRD) Af Amer > 60 (>60) 05/10/21 04:17 Est GFR (MDRD) Non-Af > 60 (>60) 05/10/21 04:17 Glucose 200 mg/dL (65-99) H 05/10/21 04:17 POC Glucose (mg/dL) 215 mg/dL (65-99) H 05/10/21 17:15 Calcium 8.5 mg/dL (8.5-10.1) 05/10/21 04:17 Corrected Calcium 9.9 mg/dL (8.5-10.1) 05/10/21 04:17 Ferritin 73 ng/mL (8-252) 05/05/21 14:23 Total Bilirubin 0.50 mg/dL (0.2-1.0) 05/10/21 04:17 AST 17 Units/L (15-37) 05/10/21 04:17 ALT 13 Units/L (12-78) 05/10/21 04:17 Alkaline Phosphatase 152 Units/L (46-116) H 05/10/21 04:17 C-Reactive Protein 140.30 mg/L (0-3.0) H 05/05/21 14:23 Total Protein 6.7 g/dL (6.4-8.2) 05/10/21 04:17 Albumin 2.2 g/dL (3.4-5.0) L 05/10/21 04:17 Globulin 4.5 g/dL (2.5-4.5) 05/10/21 04:17 Albumin/Globulin Ratio 0.5 Ratio (1.1-2.1) L 05/10/21 04:17 SARS-CoV-2 (PCR) Negative (NEGATIVE) 05/05/21 14:35 Influenza Type A (PCR) Negative (NEGATIVE) 05/05/21 14:35 Influenza Type B (PCR) Negative (NEGATIVE) 05/05/21 14:35 RSV (PCR) Negative (NEGATIVE) 05/05/21 14:35 Tissue Pathology To follow 05/10/21 13:10 Blood Type A POSITIVE 05/09/21 08:45 Antibody Screen Negative 05/09/21 08:45 Crossmatch See Detail 05/09/21 08:45 Hospital Course: This is a 50-year-old female with past history significant for diabetes and 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 She had Covid approximately 2 weeks prior to admission , with no significant symptoms and was negative prior to this admission and repeat testing was also negative for COVID . She gave a history of several weeks of increasing pain in the left foot and now had gangrenous changes of the left 2nd and 4th toes. She was admitted, placed on IV antibiotics and started on a heparin drip. CT angiogram showed normal appearing vessels down to the ankle on the left but no flow in the pedal arch of the left foot. There was question of possible thrombus in the proximal aorta. She was taken to the operating room and on table arteriogram showed evidence of embolic phenomenon with complete occlusion of all distal trifurcation vessels on the left side. Attempts to reestablish flow to the left anterior tibial artery were unsuccessful. She underwent AngioJet and chemical thrombolysis of the left posterior tibial artery with balloon angioplasty and reestablishment of flow through the left pedal arch as well as collateral flow back into the distal anterior tibial artery. At that time she also underwent amputation of the gangrenous 2nd and 4th toes. This was discussed with her fusion juncture grinder who felt, and I agreed ,that she should have a completion transmetatarsal amputation owing to the fact that having 2 toes while that to that degree left them over exposed to trauma and subsequent removal. she continued on a heparin drip and underwent transmetatarsal amputation of the left foot today. She has excellent Doppler signasl in the left posterior tibial and left dorsalis pedis pulses. On initial presentation with a past history of COVID she had an abnormal chest x-ray showing bilateral basilar infiltrates. At that time she complained of no shortness of breath. Post procedure of the left transmetatarsal amputation she had a temporary decrement of saturation and repeat chest x-ray was obtained. Repeat film was read as possible progression of disease of both lung bases . However, I reviewed them and feel there is just a difference of technique and it is no worse. She denies shortness of breath. She will be discharged home on her usual medications plus Eliquis, 5 mg PO BID, aspirin 81 mg Q day, Percocet 5 mg tablets one every 6 hours PRN pain,#30 . She has been given my phone number if she has any complications or increasing shortness of breath. She has a posterior based split on the left leg which will remain in place until I see her in the office next week in follow up. Instructions Instructions: Living With an Amputation Gangrene Phantom Limb Pain Traumatic Toe Amputation Diabetic Neuropathy Preventing Diabetes Mellitus Complications Forms: Excuse From Work or School Precautions for COVID19 Patient Portal Social Distancing
[2021-05-10 19:30] VITALS: BP 134/72
== END 2021-05-10 19:50 | disposition home or self-care (01) | DRG 271 ==
LOC: ER 12:51 → OBS 17:10
PROVIDERS: ADMIT Surgery; ATTEND Surgery
DX: Z89.421 Acquired absence of other right toe(s); I75.022 Atheroembolism of left lower extremity; R79.89 Other specified abnormal findings of blood chemistry; R79.82 Elevated C-reactive protein (CRP); Z89.412 Acquired absence of left great toe; E11.52 Type 2 diabetes mellitus with diabetic peripheral angiopathy with gangrene; Z20.822 Contact with and (suspected) exposure to COVID-19; R94.31 Abnormal electrocardiogram [ECG] [EKG]; I96 Gangrene, not elsewhere classified; E11.65 Type 2 diabetes mellitus with hyperglycemia; I10 Essential (primary) hypertension; Z86.16 Personal history of COVID-19